=== PATIENT | female | born 1935 | race Caucasian/White ===

== ENCOUNTER 2021-06-20 12:46 | Inpatient (IN) | payer MEDICARE, BC ==
--- NOTE | 2021-06-20 13:38 | ED ---
SOB HPI - General Chief Complaint: Shortness of Breath Stated Complaint: sob Source: patient, EMS Mode of arrival: EMS Limitations: physical limitation - History of Present Illness Initial Comments: Patient is an 86-year-old female past medical history of colon cancer with colostomy, hypertension, thyroid disorder who presents emergency department with reported shortness of breath. Reports that she has had symptoms since the . Started off as cough and congestion but has persisted. States that she originally lost her sense of smell and taste however that has now resolved. She is admitting to shortness of breath and generalized fatigue. States she has had no appetite and cannot remember the last time she had solid food. She normally ambulates with a walker however states this has been difficult she couldn't get to the bathroom in the morning. She denies previous history of cardiac or pulmonary issues. Patient's nonsmoker. She admits to "heartburn" symptoms however denies chest pain. No lower extremity swelling. No history of DVT or PE. No Covid exposure. Is vaccinated against Covid in her second shot was in December. States that her was sick prior to her becoming sick. No abdominal pain. No changes in her bowel or bladder habits. No other alleviating, precipitating or modifying factors - Related Data Home Medications Medication Instructions Recorded Confirmed Multivitamins, Thera [Multivitamin 1 tab PO DAILY 06/20/21 06/20/21 (formulary)] Previous Rx's Medication Instructions Recorded Apixaban [Eliquis] 5 mg PO BID 30 Days #60 tab 06/24/21 Levothyroxine Sodium 150 mcg PO DAILY #30 tablet 06/25/21 Amiodarone [Cordarone] See Taper PO BID #120 tab 06/28/21 Amoxic-Pot Clav 875-125Mg 1 tab PO Q12HR 3 Days #6 tab 06/28/21 [Augmentin 875-125] Benzonatate [Tessalon Perles] 100 mg PO TID PRN #30 cap 06/28/21 Furosemide [Lasix] 40 mg PO DAILY #30 tab 06/28/21 Losartan [Cozaar] 50 mg PO DAILY #30 tab 06/28/21 Metoprolol Tartrate [Lopressor] 50 mg PO BID 30 Days #60 tab 06/28/21 Allergies Allergy/AdvReac Type Severity Reaction Status Date / Time No Known Allergies Allergy Verified 06/20/21 14:44 Review of Systems ROS Statement: Those systems with pertinent positive or pertinent negative responses have been documented in the HPI. ROS Other: All systems not noted in ROS Statement are negative. Past Medical History Past Medical History: Hypertension, Thyroid Disorder Additional Past Medical History / Comment(s): colon/rectal cancer History of Any Multi-Drug Resistant Organisms: None Reported Past Surgical History: Bowel Resection, Orthopedic Surgery Additional Past Surgical History / Comment(s): Bowel resection with colostomy Past Psychological History: Anxiety Smoking Status: Never smoker Past Alcohol Use History: None Reported Past Drug Use History: None Reported General Exam Limitations: physical limitation General appearance: alert, in no apparent distress Head exam: Present: atraumatic, normocephalic, normal inspection Eye exam: Present: normal appearance, PERRL, EOMI. Absent: scleral icterus, conjunctival injection, periorbital swelling ENT exam: Present: normal exam, mucous membranes moist Neck exam: Present: normal inspection. Absent: tenderness, meningismus, lymphadenopathy Respiratory exam: Present: normal lung sounds bilaterally. Absent: respiratory distress, wheezes, rales, rhonchi, stridor Cardiovascular Exam: Present: regular rate, normal rhythm, normal heart sounds. Absent: systolic murmur, diastolic murmur, rubs, gallop, clicks GI/Abdominal exam: Present: soft, normal bowel sounds. Absent: distended, tend erness, guarding, rebound, rigid Extremities exam: Present: normal inspection, full ROM, normal capillary refill. Absent: tenderness, pedal edema, joint swelling, calf tenderness Back exam: Present: normal inspection Neurological exam: Present: alert, oriented X3, CN II-XII intact Psychiatric exam: Present: normal affect, normal mood Skin exam: Present: warm, dry, intact, normal color. Absent: rash Course Vital Signs 06/20/21 06/20/21 06/20/21 12:52 14:44 17:00 Temperature 98.7 F 99.5 F Pulse Rate 84 82 84 Pulse Rate [ Pulse Oximetery ] Respiratory 20 18 18 Rate Blood Pressure 193/98 156/76 156/76 Blood Pressure [Right Arm] O2 Sat by Pulse 98 98 94 L Oximetry 06/20/21 06/20/21 06/20/21 18:51 20:15 21:00 Temperature 98.4 F Pulse Rate 80 82 Pulse Rate [ 86 Pulse Oximetery ] Respiratory 18 19 20 Rate Blood Pressure 154/84 167/74 Blood Pressure 185/102 [Right Arm] O2 Sat by Pulse 98 98 97 Oximetry - Reevaluation(s) Reevaluation #1: 06/20/21 17:[address] - CT chest still unread. Will look into reason for delay Reevaluation #2: 06/20/21 18:02 CT still not read - inquiring again about delay in read Medical Decision Making - Medical Decision Making Upon arrival the patient was placed into room 4. A thorough history and physical exam was performed. Patient placed on continuous pulse ox and cardiac monitoring. 12-lead EKG was performed. IV is established and laboratory studies are conducted. White count elevated at 13.2. D-dimer is 4.82. Troponin 0.017. TSH low at .132 and free T4 of 3.1. Urinalysis does demonstrate moderate leukocyte esterase with occasional bacteria. Covid is negative. Chest x-ray demonstrates a large hiatal hernia with a left basilar infiltrate. Because of the patient's elevated d-dimer did perform a CT of the chest which demonstrates no pulmonary embolus. Distal esophageal wall thickening. Hernia with partially thoracic stomach. Chronic lung disease. I did give the patient 1 g of Rocephin and 500 mg of azithromycin. Due to patient's reported abdominal/chest discomfort I did give her a GI cocktail for which she does have an episode of vomiting. The patient has been given a dose of Protonix. She is requesting something for cough and I did give her Tessalon Perles. I did recommend admission to the hospital for IV antibiotics for her left basilar infiltrate. I would like to trend her troponins that she does have a left bundle branch block noted on EKG. Unknown if this is new. I will consult cardiology for her chest discomfort with left bundle branch block. Patient will be admitted to Dr. Galvez who agreed to admit the patient. I will hold her levothyroxine. She is currently awaiting a bed on the floor - Lab Data Result diagrams: 06/26/21 05:14 06/28/21 04:39 Lab Results 06/20/21 06/20/21 06/20/21 Range/Units 13:34 13:44 13:45 WBC 13.2 H (3.8-10.6) k/uL RBC 5.28 (3.80-5.40) m/uL Hgb 15.4 (11.4-16.0) gm/dL Hct 45.6 (34.0-46.0) % MCV 86.4 (80.0-100.0) fL MCH 29.1 (25.0-35.0) pg MCHC 33.7 (31.0-37.0) g/dL RDW 12.5 (11.5-15.5) % Plt Count 378 (150-450) k/uL Plt Count Comment MPV 7.1 Immature Gran % (Auto) % Absolute Nucleated RBC (0.00-0.00) X 10*3/uL Neutrophils % 83 % Lymphocytes % 8 % Monocytes % 6 % Eosinophils % 2 % Basophils % 0 % Immature Gran # (0.00-0.04) X 10*3/uL Neutrophils # 11.0 H (1.3-7.7) k/uL Lymphocytes # 1.1 (1.0-4.8) k/uL Monocytes # 0.8 (0-1.0) k/uL Eosinophils # 0.2 (0-0.7) k/uL Basophils # 0.1 (0-0.2) k/uL NRBC/100 WBC Diff (0.0-0.0) /100 WBCS RBC Morphology PT (9.0-12.0) sec INR (<1.2) APTT (22.0-30.0) sec D-Dimer (<0.60) mg/L FEU Sodium 134 L (137-145) mmol/L Potassium 3.6 (3.5-5.1) mmol/L Chloride 94 L (98-107) mmol/L Carbon Dioxide 32 H (22-30) mmol/L Anion Gap 8 mmol/L BUN 15 (7-17) mg/dL Creatinine 0.70 (0.52-1.04) mg/dL Est GFR (CKD-EPI)AfAm >90 (>60 ml/min/1.73 sqM) Est GFR (CKD-EPI)NonAf 80 (>60 ml/min/1.73 sqM) BUN/Creatinine Ratio (12.00-20.00) Ratio Glucose 132 H (74-99) mg/dL Plasma Lactic Acid Sundar (0.7-2.0) mmol/L Calcium 10.4 H (8.4-10.2) mg/dL Magnesium 1.9 (1.6-2.3) mg/dL Total Bilirubin 0.7 (0.2-1.3) mg/dL AST 38 H (14-36) U/L ALT 38 H (4-34) U/L Alkaline Phosphatase 94 (38-126) U/L Creatine Kinase 25 L (30-135) U/L Troponin I (0.000-0.034) ng/mL NT-Pro-B Natriuret Pep pg/mL Total Protein 7.0 (6.3-8.2) g/dL Albumin 3.5 (3.5-5.0) g/dL TSH 0.132 L (0.465-4.680) mIU/L Free T4 3.17 H (0.78-2.19) ng/dL Urine Color Urine Appearance (Clear) Urine pH (5.0-8.0) Ur Specific [place] (1.001-1.035) Urine Protein (Negative) Urine Glucose (UA) (Negative) Urine Ketones (Negative) Urine Blood (Negative) Urine Nitrite (Negative) Urine Bilirubin (Negative) Urine Urobilinogen (<2.0) mg/dL Ur Leukocyte Esterase (Negative) Urine RBC (0-5) /hpf Urine WBC (0-5) /hpf Ur Squamous Epith Cells (0-4) /hpf Amorphous Sediment (None) /hpf Urine Bacteria (None) /hpf Coronavirus (PCR) Not Detected (Not Detectd) 06/20/21 06/20/21 06/20/21 Range/Units 13:45 13:45 13:45 WBC (3.8-10.6) k/uL RBC (3.80-5.40) m/uL Hgb (11.4-16.0) gm/dL Hct (34.0-46.0) % MCV (80.0-100.0) fL MCH (25.0-35.0) pg MCHC (31.0-37.0) g/dL RDW (11.5-15.5) % Plt Count (150-450) k/uL Plt Count Comment MPV Immature Gran % (Auto) % Absolute Nucleated RBC (0.00-0.00) X 10*3/uL Neutrophils % % Lymphocytes % % Monocytes % % Eosinophils % % Basophils % % Immature Gran # (0.00-0.04) X 10*3/uL Neutrophils # (1.3-7.7) k/uL Lymphocytes # (1.0-4.8) k/uL Monocytes # (0-1.0) k/uL Eosinophils # (0-0.7) k/uL Basophils # (0-0.2) k/uL NRBC/100 WBC Diff (0.0-0.0) /100 WBCS RBC Morphology PT (9.0-12.0) sec INR (<1.2) APTT (22.0-30.0) sec D-Dimer (<0.60) mg/L FEU Sodium (137-145) mmol/L Potassium (3.5-5.1) mmol/L Chloride (98-107) mmol/L Carbon Dioxide (22-30) mmol/L Anion Gap mmol/L BUN (7-17) mg/dL Creatinine (0.52-1.04) mg/dL Est GFR (CKD-EPI)AfAm (>60 ml/min/1.73 sqM) Est GFR (CKD-EPI)NonAf (>60 ml/min/1.73 sqM) BUN/Creatinine Ratio (12.00-20.00) Ratio Glucose (74-99) mg/dL Plasma Lactic Acid Sundar 1.6 (0.7-2.0) mmol/L Calcium (8.4-10.2) mg/dL Magnesium (1.6-2.3) mg/dL Total Bilirubin (0.2-1.3) mg/dL AST (14-36) U/L ALT (4-34) U/L Alkaline Phosphatase (38-126) U/L Creatine Kinase (30-135) U/L Troponin I 0.017 (0.000-0.034) ng/mL NT-Pro-B Natriuret Pep 630 pg/mL Total Protein (6.3-8.2) g/dL Albumin (3.5-5.0) g/dL TSH (0.465-4.680) mIU/L Free T4 (0.78-2.19) ng/dL Urine Color Urine Appearance (Clear) Urine pH (5.0-8.0) Ur Specific [place] (1.001-1.035) Urine Protein (Negative) Urine Glucose (UA) (Negative) Urine Ketones (Negative) Urine Blood (Negative) Urine Nitrite (Negative) Urine Bilirubin (Negative) Urine Urobilinogen (<2.0) mg/dL Ur Leukocyte Esterase (Negative) Urine RBC (0-5) /hpf Urine WBC (0-5) /hpf Ur Squamous Epith Cells (0-4) /hpf Amorphous Sediment (None) /hpf Urine Bacteria (None) /hpf Coronavirus (PCR) (Not Detectd) 06/20/21 06/20/21 06/20/21 Range/Units 15:00 15:00 22:00 WBC (3.8-10.6) k/uL RBC (3.80-5.40) m/uL Hgb (11.4-16.0) gm/dL Hct (34.0-46.0) % MCV (80.0-100.0) fL MCH (25.0-35.0) pg MCHC (31.0-37.0) g/dL RDW (11.5-15.5) % Plt Count (150-450) k/uL Plt Count Comment MPV Immature Gran % (Auto) % Absolute Nucleated RBC (0.00-0.00) X 10*3/uL Neutrophils % % Lymphocytes % % Monocytes % % Eosinophils % % Basophils % % Immature Gran # (0.00-0.04) X 10*3/uL Neutrophils # (1.3-7.7) k/uL Lymphocytes # (1.0-4.8) k/uL Monocytes # (0-1.0) k/uL Eosinophils # (0-0.7) k/uL Basophils # (0-0.2) k/uL NRBC/100 WBC Diff (0.0-0.0) /100 WBCS RBC Morphology PT 10.8 (9.0-12.0) sec INR 1.0 (<1.2) APTT 23.7 (22.0-30.0) sec D-Dimer 4.82 H (<0.60) mg/L FEU Sodium (137-145) mmol/L Potassium (3.5-5.1) mmol/L Chloride (98-107) mmol/L Carbon Dioxide (22-30) mmol/L Anion Gap mmol/L BUN (7-17) mg/dL Creatinine (0.52-1.04) mg/dL Est GFR (CKD-EPI)AfAm (>60 ml/min/1.73 sqM) Est GFR (CKD-EPI)NonAf (>60 ml/min/1.73 sqM) BUN/Creatinine Ratio (12.00-20.00) Ratio Glucose (74-99) mg/dL Plasma Lactic Acid Sundar (0.7-2.0) mmol/L Calcium (8.4-10.2) mg/dL Magnesium (1.6-2.3) mg/dL Total Bilirubin (0.2-1.3) mg/dL AST (14-36) U/L ALT (4-34) U/L Alkaline Phosphatase (38-126) U/L Creatine Kinase (30-135) U/L Troponin I 0.023 (0.000-0.034) ng/mL NT-Pro-B Natriuret Pep pg/mL Total Protein (6.3-8.2) g/dL Albumin (3.5-5.0) g/dL TSH (0.465-4.680) mIU/L Free T4 (0.78-2.19) ng/dL Urine Color Light Yellow Urine Appearance Cloudy H (Clear) Urine pH 7.5 (5.0-8.0) Ur Specific [place] 1.009 (1.001-1.035) Urine Protein Negative (Negative) Urine Glucose (UA) Negative (Negative) Urine Ketones Negative (Negative) Urine Blood Negative (Negative) Urine Nitrite Negative (Negative) Urine Bilirubin Negative (Negative) Urine Urobilinogen <2.0 (<2.0) mg/dL Ur Leukocyte Esterase Moderate H (Negative) Urine RBC 1 (0-5) /hpf Urine WBC 9 H (0-5) /hpf Ur Squamous Epith Cells 1 (0-4) /hpf Amorphous Sediment Few H (None) /hpf Urine Bacteria Occasional H (None) /hpf Coronavirus (PCR) (Not Detectd) 06/21/21 06/21/21 06/21/21 Range/Units 00:48 05:52 05:52 WBC 8.84 (3.8-10.6) k/uL RBC 4.84 (3.80-5.40) m/uL Hgb 13.4 (11.4-16.0) gm/dL Hct 41.4 (34.0-46.0) % MCV 85.5 (80.0-100.0) fL MCH 27.7 (25.0-35.0) pg MCHC 32.4 (31.0-37.0) g/dL RDW 12.6 (11.5-15.5) % Plt Count 399 (150-450) k/uL Plt Count Comment Adequate MPV 9.0 L Immature Gran % (Auto) 0.5 % Absolute Nucleated RBC 0 (0.00-0.00) X 10*3/uL Neutrophils % 66.1 % Lymphocytes % 13.3 % Monocytes % 18.1 % Eosinophils % 1.5 % Basophils % 0.5 % Immature Gran # 0.04 (0.00-0.04) X 10*3/uL Neutrophils # 5.85 (1.3-7.7) k/uL Lymphocytes # 1.18 (1.0-4.8) k/uL Monocytes # 1.60 H (0-1.0) k/uL Eosinophils # 0.13 (0-0.7) k/uL Basophils # 0.04 (0-0.2) k/uL NRBC/100 WBC Diff 0 (0.0-0.0) /100 WBCS RBC Morphology NORMAL PT (9.0-12.0) sec INR (<1.2) APTT (22.0-30.0) sec D-Dimer (<0.60) mg/L FEU Sodium 136 (137-145) mmol/L Potassium 4.2 (3.5-5.1) mmol/L Chloride 98 (98-107) mmol/L Carbon Dioxide 32.1 H (22-30) mmol/L Anion Gap 5.90 mmol/L BUN 12.0 (7-17) mg/dL Creatinine 0.8 (0.52-1.04) mg/dL Est GFR (CKD-EPI)AfAm 78.5 (>60 ml/min/1.73 sqM) Est GFR (CKD-EPI)NonAf 67.7 (>60 ml/min/1.73 sqM) BUN/Creatinine Ratio 15.00 (12.00-20.00) Ratio Glucose 110 (74-99) mg/dL Plasma Lactic Acid Sundar (0.7-2.0) mmol/L Calcium 9.0 (8.4-10.2) mg/dL Magnesium (1.6-2.3) mg/dL Total Bilirubin (0.2-1.3) mg/dL AST (14-36) U/L ALT (4-34) U/L Alkaline Phosphatase (38-126) U/L Creatine Kinase (30-135) U/L Troponin I 0.020 (0.000-0.034) ng/mL NT-Pro-B Natriuret Pep pg/mL Total Protein (6.3-8.2) g/dL Albumin (3.5-5.0) g/dL TSH (0.465-4.680) mIU/L Free T4 (0.78-2.19) ng/dL Urine Color Urine Appearance (Clear) Urine pH (5.0-8.0) Ur Specific [place] (1.001-1.035) Urine Protein (Negative) Urine Glucose (UA) (Negative) Urine Ketones (Negative) Urine Blood (Negative) Urine Nitrite (Negative) Urine Bilirubin (Negative) Urine Urobilinogen (<2.0) mg/dL Ur Leukocyte Esterase (Negative) Urine RBC (0-5) /hpf Urine WBC (0-5) /hpf Ur Squamous Epith Cells (0-4) /hpf Amorphous Sediment (None) /hpf Urine Bacteria (None) /hpf Coronavirus (PCR) (Not Detectd) 06/21/21 Range/Units 20:01 WBC (3.8-10.6) k/uL RBC (3.80-5.40) m/uL Hgb (11.4-16.0) gm/dL Hct (34.0-46.0) % MCV (80.0-100.0) fL MCH (25.0-35.0) pg MCHC (31.0-37.0) g/dL RDW (11.5-15.5) % Plt Count (150-450) k/uL Plt Count Comment MPV Immature Gran % (Auto) % Absolute Nucleated RBC (0.00-0.00) X 10*3/uL Neutrophils % % Lymphocytes % % Monocytes % % Eosinophils % % Basophils % % Immature Gran # (0.00-0.04) X 10*3/uL Neutrophils # (1.3-7.7) k/uL Lymphocytes # (1.0-4.8) k/uL Monocytes # (0-1.0) k/uL Eosinophils # (0-0.7) k/uL Basophils # (0-0.2) k/uL NRBC/100 WBC Diff (0.0-0.0) /100 WBCS RBC Morphology PT (9.0-12.0) sec INR (<1.2) APTT (22.0-30.0) sec D-Dimer (<0.60) mg/L FEU Sodium (137-145) mmol/L Potassium (3.5-5.1) mmol/L Chloride (98-107) mmol/L Carbon Dioxide (22-30) mmol/L Anion Gap mmol/L BUN (7-17) mg/dL Creatinine (0.52-1.04) mg/dL Est GFR (CKD-EPI)AfAm (>60 ml/min/1.73 sqM) Est GFR (CKD-EPI)NonAf (>60 ml/min/1.73 sqM) BUN/Creatinine Ratio (12.00-20.00) Ratio Glucose (74-99) mg/dL Plasma Lactic Acid Sundar (0.7-2.0) mmol/L Calcium (8.4-10.2) mg/dL Magnesium (1.6-2.3) mg/dL Total Bilirubin (0.2-1.3) mg/dL AST (14-36) U/L ALT (4-34) U/L Alkaline Phosphatase (38-126) U/L Creatine Kinase (30-135) U/L Troponin I (0.000-0.034) ng/mL NT-Pro-B Natriuret Pep pg/mL Total Protein (6.3-8.2) g/dL Albumin (3.5-5.0) g/dL TSH (0.465-4.680) mIU/L Free T4 (0.78-2.19) ng/dL Urine Color Urine Appearance (Clear) Urine pH (5.0-8.0) Ur Specific [place] (1.001-1.035) Urine Protein (Negative) Urine Glucose (UA) (Negative) Urine Ketones (Negative) Urine Blood (Negative) Urine Nitrite (Negative) Urine Bilirubin (Negative) Urine Urobilinogen (<2.0) mg/dL Ur Leukocyte Esterase (Negative) Urine RBC (0-5) /hpf Urine WBC (0-5) /hpf Ur Squamous Epith Cells (0-4) /hpf Amorphous Sediment (None) /hpf Urine Bacteria (None) /hpf Coronavirus (PCR) Not Detected (Not Detectd) - EKG Data EKG Comments: EKG demonstrates a normal sinus rhythm with a ventricular rate of 82. MO interval 200. QRS 158. QTC of 490. There is a left bundle branch block. Negative sgarbossa criteria. No old for comparison. Disposition Clinical Impression: Cough, CAP (community acquired pneumonia), Hyperthyroidism Disposition: ADMITTED IP TO THIS HOSP Condition: Stable Is patient prescribed a controlled substance at d/c from ED?: No Decision to Admit Reason: Admit from EC Decision Date: 06/20/21 Decision Time: 18:57
[2021-06-20 13:50] LABS: Basophils # (A) 0.1 k/uL (0-0.2); Basophils % (A) 0 %; Eosinophils # (A) 0.2 k/uL (0-0.7); Eosinophils % (A) 2 %; HCT 45.6 % (34.0-46.0); HGB 15.4 gm/dL (11.4-16.0); Lymphocytes # (A) 1.1 k/uL (1.0-4.8); Lymphocytes % (A) 8 %; MCH 29.1 pg (25.0-35.0); MCHC 33.7 g/dL (31.0-37.0); MCV 86.4 fL (80.0-100.0); Mean Platelet Volume 7.1; Monocytes # (A) 0.8 k/uL (0-1.0); Monocytes % (A) 6 %; Neutrophils % (A) 83 %; Platelet Count 378 k/uL (150-450); RBC 5.28 m/uL (3.80-5.40); RDW 12.5 % (11.5-15.5); WBC 13.2 k/uL (3.8-10.6)
[2021-06-20 14:00] LABS: ALT 38 U/L (4-34); AST 38 U/L (14-36); African American GFR (CKD) >90 (>60 ml/min/1.73 sqM); Albumin 3.5 g/dL (3.5-5.0); Alkaline Phosphatase 94 U/L (38-126); Anion Gap 8 mmol/L; Blood Urea Nitrogen 15 mg/dL (7-17); Calcium 10.4 mg/dL (8.4-10.2); Carbon Dioxide 32 mmol/L (22-30); Chloride 94 mmol/L (98-107); Creatine Kinase 25 U/L (30-135); Glucose 132 mg/dL (74-99); Magnesium 1.9 mg/dL (1.6-2.3); Non-African American GFR(CKD) 80 (>60 ml/min/1.73 sqM); Potassium 3.6 mmol/L (3.5-5.1); Sodium 134 mmol/L (137-145); Total Bilirubin 0.7 mg/dL (0.2-1.3)
--- NOTE | 2021-06-20 14:07 | XR ---
EXAMINATION TYPE: XR chest 2V DATE OF EXAM: 06/20/2021 COMPARISON: NONE TECHNIQUE: PA and lateral views submitted. HISTORY: Shortness of breath FINDINGS: The lungs are clear and there is no pneumothorax, pleural effusion, or focal pneumonia. Diffuse int erstitial pattern with left basilar infiltrate and hiatal hernia. No sizable pleural effusion or pneu mothorax. Arthropathy of the shoulders. Degenerative change of the spine. IMPRESSION: 1. Large hiatal hernia with left basilar infiltrate. Correlate for interstitial chronic lung disease such as pulmonary fibrosis. Superimposed or interstitial pneumonitis or pneumonia in the differential diagnosis.
[2021-06-20 15:08] LABS: Amorphous Sediment,Urine Few /hpf; Appearance,Urine Cloudy (Clear); Bacteria,Urine Occasional /hpf; Bilirubin,Urine Negative (Negative); Blood,Urine Negative (Negative); Color,Urine Light Yellow; Glucose,Urine (UA) Negative (Negative); Ketones,Urine Negative (Negative); Leukocyte Esterase,Urine Moderate (Negative); Nitrite,Urine Negative (Negative); PH, Urine 7.5 (5.0-8.0); Protein,Urine Negative (Negative); RBC,Urine 1 /hpf (0-5); Specific Gravity,Urine 1.009 (1.001-1.035); Squamous Epithelial Cell,Urine 1 /hpf (0-4); Urobilinogen,Urine <2.0 mg/dL (<2.0); WBC,Urine 9 /hpf (0-5)
[2021-06-20 15:09] LABS: T4, Free (Free Thyroxine) 3.17 ng/dL (0.78-2.19)
[2021-06-20 15:21] LABS: Partial Thromboplastin Time 23.7 sec (22.0-30.0); Prothrombin Time 10.8 sec (9.0-12.0)
[2021-06-20] MEDS ORDERED: AZITHROMYCIN 500 MG in SODIUM CHLORIDE 0.9% 250 ML IVPB STA (15:23)
[2021-06-20] MEDS ORDERED: cefTRIAXone IN SWFI 1,000 MG/10 ML SYRINGE IVP STA (15:23)
[2021-06-20] MEDS ORDERED: MAG HYDROX/AL HYDROX/SIMETH 30 ML, HYOSCYAMINE ELIXIR 10 ML, LIDOCAINE VISCOUS 2% 10 ML PO STA ×3 (16:22)
[2021-06-20] MEDS ORDERED: BENZONATATE 100 MG CAP PO STA (18:20)
--- NOTE | 2021-06-20 18:27 | CT ---
EXAMINATION TYPE: CT chest angio for PE DATE OF EXAM: 06/20/2021 COMPARISON: None HISTORY: cough, SOB, elevated d-dimer CT DLP: 349 mGycm Automated exposure control for dose reduction was used. CONTRAST: CT Chest for pulmonary embolism performed with with IV Contrast, patient injected with 76cc mL of Iso shweta 370. FINDINGS: LUNGS: Groundglass/reticular opacities and bronchiectatic changes of the lungs. No consolidation or e ffusion or pneumothorax. Central airways are patent. MEDIASTINUM: There is satisfactory enhancement of the pulmonary artery and its branches, there is no CT evidence for pulmonary embolism. There are no greater than 1 cm hilar or mediastinal lymph nodes. No pericardial effusion is seen. The distal esophageal wall thickening. Left Bochdalek hernia with partially intrathoracic stomach. OTHER: Hemangiomas of T4 and T8 vertebral bodies. A hypodensity in the right lobe of liver likely re presents a cyst. IMPRESSION: 1. No pulmonary embolus. 2. The distal esophageal wall thickening. Correlate with direct visualization. 3. Left Bochdalek hernia with partially intrathoracic stomach. 4. Chronic lung disease.
[2021-06-20] MEDS ORDERED: PANTOPRAZOLE 40 MG/10 ML VIAL IVP STA (18:34)
[2021-06-20] MEDS ORDERED: IBUPROFEN 400 MG TAB PO PRN (18:57)
[2021-06-20] MEDS ORDERED: NALOXONE 0.4 MG/ML 1 ML VIAL IV PRN (18:57)
[2021-06-20] MEDS: SODIUM CHLORIDE 0.9% 1,000 ML IV SCH ×2 (20:10→20:29)
[2021-06-20] MEDS: METOPROLOL SUCCINATE (ER) 25 MG TAB.ER.24H PO SCH (21:17)
[2021-06-21] MEDS: IPRATROPIUM-ALBUTEROL 3 ML NEB INHALATION SCH ×4 (08:10→20:00)
[2021-06-21] MEDS: LOSARTAN 50 MG TAB PO SCH ×2 (08:37→08:39)
[2021-06-21] MEDS: MULTIVITAMINS, THERA 1 EACH TAB PO SCH (08:37)
[2021-06-21] MEDS ORDERED: PANTOPRAZOLE 40 MG/10 ML VIAL IV SCH (09:00)
--- NOTE | 2021-06-21 09:00 | ECHOF ---
Referral Reason:dyspnea MEASUREMENTS -------- HEIGHT: 160.0 cm WEIGHT: 95.3 kg BP: 163/81 RVIDd: 2.5 cm (< 3.3) IVSd: 1.4 cm (0.6 - 1.1) LVIDd: 3.1 cm (3.9 - 5.3) LVPWd: 1.5 cm (0.6 - 1.1) IVSs: 1.6 cm LVIDs: 2.7 cm LVPWs: 1.7 cm LA Diam: 3.0 cm (2.7 - 3.8) Ao Diam: 3.1 cm (2.0 - 3.7) AV Cusp: 1.9 cm (1.5 - 2.6) MV EXCURSION: 16.920 mm (> 18.000) MV EF SLOPE: 37 mm/s (70 - 150) EPSS: 0.4 cm MV E Eliud: 1.12 m/s MV DecT: 238 ms MV A Eliud: 1.40 m/s MV E/A Ratio: 0.80 FINDINGS -------- Sinus rhythm. This was a technically adequate study. The left ventricular size is normal. There is moderate concentric left ventricular hypertrophy. O verall left ventricular systolic function is normal with, an EF between 55 - 60 %. The right ventricle is normal in size. The left atrium is normal in size. The right atrial size is normal. Interatrial and interventricular septum intact. The aortic valve is trileaflet, and appears structurally normal. No aortic stenosis or regurgitation. Mild mitral annular calcification present. There is trace mitral regurgitation. The tricuspid valve appears structurally normal. Unable to estimate RVSP due to inadequate TR jet s pectral doppler profile. There is no pulmonic regurgitation present. The aortic root size is normal. Normal inferior vena cava with normal inspiratory collapse consistent with estimated right atrial pre ssure of 5 mmHg. There is no pericardial effusion. CONCLUSIONS -------- 1. There is moderate concentric left ventricular hypertrophy. 2. Overall left ventricular systolic function is normal with, an EF between 55 - 60 %. 3. The left atrium is normal in size. 4. The aortic valve is trileaflet, and appears structurally normal. No aortic stenosis or regurgitati on. 5. There is trace mitral regurgitation. 6. There is no pericardial effusion. DAY CARE SUPERVISOR: Mony Burgess RDCS
[2021-06-21 09:08] LABS: HCT 41.4 % (37.2-46.3); HGB 13.4 g/dL (12.0-15.0); MCH 27.7 pg (27.0-32.0); MCHC 32.4 g/dL (32.0-37.0); MCV 85.5 fL (80.0-97.0); Platelet Count 399 X 10*3/uL (140-440); RBC 4.84 X 10*6/uL (4.10-5.20); RDW 12.6 % (11.5-14.5); WBC 8.84 X 10*3/uL (4.50-10.00)
--- NOTE | 2021-06-21 09:28 | CONS ---
CONSULTATION Mrs. Desai is an 86-year-old female with a history of hypertension who presented to the emergency room with symptoms of progressive dyspnea and cough which is productive of clear sputum. She has no fever. She had some heartburn, but no clear chest pressure or tightness. She has a prior history of colostomy done over 20 years ago. She denies any dizziness or palpitation. No peripheral edema. No PND. No orthopnea. She was diagnosed with possible pneumonia in the emergency room. She is average in her exercise tolerance, has mild dyspnea on exertion, but no history of obstructive coronary artery disease. She denies any PND or orthopnea. Her coronary risk factors are remarkable for hypertension. She is nondiabetic, nonsmoker. MEDICATIONS: Her medications include Toprol XL 25 mg daily, levothyroxine and a multivitamin. REVIEW OF SYSTEMS: RESPIRATORY SYSTEM: She has no documented history of asthma or emphysema or bronchitis. She has dyspnea on exertion and the cough recently, but no fever. She has been vaccinated for COVID-19. GI SYSTEM: No recent GI bleeding. No peptic ulcer disease. SYSTEM: No dysuria or hematuria. NERVOUS SYSTEM: No stroke or seizure. PHYSICAL EXAMINATION: She is an 86-year-old female, alert, oriented, in no apparent distress. Blood pressure running in the 150s to 190s with a heart rate in the 70s and 80s. HEAD: Normocephalic. EYES: Sclerae anicteric. NECK: Good carotid upstroke. No bruit. No jugular venous distention. LUNGS: Clear to auscultation. HEART: Regular rate and rhythm. S1, S2. No S3. Systolic murmur 3/6 mid peaking, heard at the base. No diastolic murmur. No rub. ABDOMEN: Soft. Colostomy noted. No organomegaly. EXTREMITIES: No edema. Intact distal pulses. LAB DATA: Lab data revealed troponin 0.017, 0.023 and 0.020. Her NT-proBNP is 620. TSH 0.132, free T4 is 3.17. BUN and creatinine are 15 and 0.7. D-dimer 4.82. White blood cells of 13.2, hemoglobin of 15.4. EKG revealed a sinus mechanism with left bundle branch block and left axis deviation. Chest x-ray revealed a large hiatal hernia with left basal infiltrate. She had a CT angiogram of the chest that revealed no evidence of pulmonary embolism and revealed a Bochdalek hernia with an intrathoracic stomach. IMPRESSION: 1. Cough and dyspnea with possible pneumonia. 2. Heartburn related to her hiatal hernia. 3. History of hypertension. 4. Aortic valve murmur. RECOMMENDATIONS: From the cardiac standpoint, there is no evidence to suggest cardiac abnormalities. Her blood pressure is elevated. I will add to her regimen losartan to optimize her blood pressure control. I will obtain an echocardiogram to evaluate her heart murmur. No further cardiac workup is needed at this time. Thank you for this consult. Will follow with you. MMODL / IJN: [id number] /
[2021-06-21 09:50] LABS: Basophils # (A) 0.04 X 10*3/uL (0.00-0.10); Basophils % (A) 0.5 %; Eosinophils # (A) 0.13 X 10*3/uL (0.04-0.35); Eosinophils % (A) 1.5 %; Lymphocytes # (A) 1.18 X 10*3/uL (0.90-5.00); Lymphocytes % (A) 13.3 %; Monocytes % (A) 18.1 %; Neutrophils # (A) 5.85 X 10*3/uL (1.80-7.70); Neutrophils % (A) 66.1 %
[2021-06-21 17:08] LABS: African American GFR (CKD) 78.5 (60.0-200.0); Anion Gap 5.9 mmol/L (4.00-12.00); Carbon Dioxide 32.1 mmol/L (21.6-31.8); Non-African American GFR(CKD) 67.7 (60.0-200.0); Potassium 4.2 mmol/L (3.5-5.5)
[2021-06-21] MEDS: SODIUM CHLORIDE 0.9% 1,000 ML IV SCH (18:02)
[2021-06-21] MEDS: METOPROLOL SUCCINATE (ER) 25 MG TAB.ER.24H PO SCH (20:45)
[2021-06-22] MEDS: guaiFENesin-DM 600/30MG 1 EACH TAB.ER.12H PO PRN (01:59)
[2021-06-22] MEDS: LOSARTAN 50 MG TAB PO SCH (08:16)
[2021-06-22] MEDS: MULTIVITAMINS, THERA 1 EACH TAB PO SCH (08:16)
[2021-06-22] MEDS: SODIUM CHLORIDE 0.9% 1,000 ML IV SCH ×2 (08:17→21:07)
[2021-06-22] MEDS: IPRATROPIUM-ALBUTEROL 3 ML NEB INHALATION SCH ×4 (08:23→20:25)
[2021-06-22] MEDS ORDERED: PANTOPRAZOLE 40 MG TABLET PO SCH (09:00)
[2021-06-22] MEDS: AZITHROMYCIN 500 MG in SODIUM CHLORIDE 0.9% 250 ML IVPB SCH (18:11)
--- NOTE | 2021-06-22 18:19 | PN ---
PROGRESS NOTE I am covering for Dr. Clinton. DATE OF SERVICE: 06/22/2021 This 86-year-old woman with a past medical history of multiple medical problems, including hypertension, hypothyroidism, history of colorectal cancer, was admitted with a chronic cough and possible pneumonia has been noted. D-dimer is elevated. The patient was vaccinated against COVID-19, COVID-19 is a possibility. The initial serologies are negative. The patient also had low TSH and elevated free T4, suggestive of hyperthyroidism. Patient is currently on Synthroid of 175 at home dose, which has been held at this time. There is no history of any fever, rigor or chills. Past medical history reviewed. REVIEW OF SYSTEMS: CARDIOVASCULAR SYSTEM: No angina. RESPIRATION: As mentioned earlier. GI: As mentioned earlier. : No dysuria. NERVOUS SYSTEM: No numbness, weakness. CURRENT MEDICATIONS: Reviewed. They include Tylenol, DuoNeb, Rocephin, Motrin, Cozaar, multivitamins, Narcan, Protonix. Doses are reviewed. PHYSICAL EXAMINATION: Patient alert and oriented x3. Pulse 77, blood pressure 163/81, respiration 17, temperature 98.2, pulse ox 97% on 3 L. HEENT: Conjunctivae normal. NECK: No jugular venous distention. CARDIOVASCULAR: S1, S2 muffled. RESPIRATION: Breath sounds diminished at the bases. A few scattered rhonchi and basal crackles heard. ABDOMEN: Soft, nontender. No mass palpable. LEGS: No edema. No swelling. NERVOUS SYSTEM: No focal deficit. LABS: WBC 8.84. Serum procalcitonin is not available. ASSESSMENT: 1. Acute bilateral pneumonia, interstitial pneumonia, possible viral pneumonia, possibly COVID-19 pneumonia. 2. Elevated D-dimer without any evidence of acute pulmonary embolism. 3. Increased white count. 4. Hyponatremia. 5. Elevated AST, ALT, mild hepatitis. 6. Iatrogenic hyperthyroidism, mild. 7. Hypertension. 8. History of hypothyroidism. 9. History of colorectal cancer. 10.History of bowel resection. 11.History of anxiety. 12.Obesity with body mass index of 37.2. 13.FULL CODE. RECOMMENDATIONS AND DISCUSSION: In this 86-year-old woman who presented with multiple complex medical issues, we will monitor the patient closely, continue the current medications, continue symptomatic treatment. Continue the antibiotics. I also recommend a course of bronchodilators. Otherwise, continue to monitor. COVID-19 testing was requested. The prognosis is guarded because of multiple complex medical issues. Further recommendations to follow. Repeat labs will be ordered. MMODL / IJN: [id number] /
[2021-06-22] MEDS: METOPROLOL SUCCINATE (ER) 25 MG TAB.ER.24H PO SCH (19:20)
[2021-06-22] MEDS: HEPARIN SODIUM,PORCINE/PF 5,000 UNIT/0.5 ML SYRINGE SQ SCH (19:21)
[2021-06-22 20:11] LABS: C Reactive Protein 4.3 mg/dL (<1.0)
[2021-06-22] MEDS: ALBUTEROL HFA INHALER INHALATION SCH (20:27)
[2021-06-22] MEDS: PANTOPRAZOLE 40 MG/10 ML VIAL IVP SCH (21:13)
[2021-06-23] MEDS: AZITHROMYCIN 500 MG in SODIUM CHLORIDE 0.9% 250 ML IVPB SCH (08:07)
[2021-06-23] MEDS: MULTIVITAMINS, THERA 1 EACH TAB PO SCH (08:08)
[2021-06-23] MEDS: HEPARIN SODIUM,PORCINE/PF 5,000 UNIT/0.5 ML SYRINGE SQ SCH ×2 (08:08→21:16)
[2021-06-23] MEDS: LOSARTAN 50 MG TAB PO SCH (08:08)
[2021-06-23] MEDS: PANTOPRAZOLE 40 MG/10 ML VIAL IVP SCH ×2 (08:08→21:17)
[2021-06-23] MEDS: IPRATROPIUM-ALBUTEROL 3 ML NEB INHALATION SCH ×4 (08:53→20:42)
[2021-06-23] MEDS: ALBUTEROL HFA INHALER INHALATION SCH ×4 (08:55→20:44)
[2021-06-23 09:00] LABS: Basophils # (A) 0.01 X 10*3/uL (0.00-0.10); Basophils % (A) 0.1 %; Eosinophils # (A) 0.19 X 10*3/uL (0.04-0.35); Eosinophils % (A) 1.6 %; HCT 40.4 % (37.2-46.3); HGB 12.9 g/dL (12.0-15.0); Lymphocytes % (A) 7.7 %; MCH 27.2 pg (27.0-32.0); MCHC 31.9 g/dL (32.0-37.0); MCV 85.1 fL (80.0-97.0); Monocytes # (A) 1.66 X 10*3/uL (0.20-1.00); Monocytes % (A) 14.1 %; Neutrophils # (A) 8.93 X 10*3/uL (1.80-7.70); Neutrophils % (A) 76.1 %; Platelet Count 417 X 10*3/uL (140-440); RBC 4.75 X 10*6/uL (4.10-5.20); RDW 12.3 % (11.5-14.5); WBC 11.74 X 10*3/uL (4.50-10.00)
[2021-06-23 09:21] LABS: Ferritin 85.6 ng/mL (10.0-291.0)
[2021-06-23] MEDS: SODIUM CHLORIDE 0.9% 1,000 ML IV SCH ×2 (09:54→22:26)
[2021-06-23 10:29] LABS: Anion Gap 7.3 mmol/L (4.00-12.00); BUN/Creat Ratio 8.33 Ratio (12.00-20.00); Calcium 8.8 mg/dL (8.7-10.3); Carbon Dioxide 27.7 mmol/L (21.6-31.8); Non-African American GFR(CKD) 83.7 (60.0-200.0); Potassium 3.8 mmol/L (3.5-5.5)
--- NOTE | 2021-06-23 11:12 | P.CNPUL ---
History of Present Illness Consult date: 06/23/21 Reason for consult: dyspnea, cough, hypoxemia Chief complaint: Shortness of breath and cough History of present illness: Patient is a 86-year-old female seen eval reexamined continued to have complaint of ongoing cough shortness of breath, patient is a nonsmoker symptoms started about 2 weeks ago, however denies any chest pain, she does have symptoms of ongoing heartburn, patient has been immunized again scored, her past medical history significant for hypothyroidism, hypertension hypertensive cardiovascular disease, and hypothyroidism, history of bowel resection and colostomy due to history of colon cancer status post colostomy, and influenza and covert testing has been negative her chest x-ray with left lower lobe infiltrate along with large hiatal hernia some component of chronic pulmonary fibrosis, she underwent computed tomography scan of his chest which was negative for pulmonary embolism distillation esophageal wall thickening is noted, with presence of ground glass and reticular opacities, currently patient is appropriately treated with bronchodilators IV antibiotics with azithromycin and Rocephin Review of Systems All systems: negative Past Medical History Past Medical History: Hypertension, Thyroid Disorder Additional Past Medical History / Comment(s): colon/rectal cancer History of Any Multi-Drug Resistant Organisms: None Reported Past Surgical History: Bowel Resection, Orthopedic Surgery Additional Past Surgical History / Comment(s): Bowel resection with colostomy Past Psychological History: Anxiety Smoking Status: Never smoker Past Alcohol Use History: None Reported Past Drug Use History: None Reported Medications and Allergies Home Medications Medication Instructions Recorded Confirmed Type Levothyroxine Sodium [Synthroid] 175 mcg PO DAILY 06/20/21 06/20/21 History Metoprolol Succinate (ER) [Toprol 25 mg PO HS 06/20/21 06/20/21 History Xl] Multivitamins, Thera [Multivitamin 1 tab PO DAILY 06/20/21 06/20/21 History (formulary)] Allergies Allergy/AdvReac Type Severity Reaction Status Date / Time No Known Allergies Allergy Verified 06/20/21 14:44 Physical Exam Vitals: Vital Signs Temp Pulse Pulse Resp BP Pulse Ox 06/23/21 08:55 84 06/23/21 07:00 98.2 F 84 18 194/91 94 L 06/23/21 02:30 82 20 06/23/21 01:43 97.6 F 84 20 183/82 90 L 06/22/21 19:21 82 20 06/22/21 19:00 98.1 F 82 20 189/94 92 L 06/22/21 16:07 82 06/22/21 15:59 97 06/22/21 15:54 77 06/22/21 15:00 98.6 F 77 18 186/78 97 06/22/21 12:10 80 06/22/21 12:00 80 Intake and Output 06/22/21 06/23/21 06/23/21 22:59 06:59 14:59 Intake Total 0 0 Output Total 600 Balance 0 -600 0 Intake: Oral 0 0 Output: Urine 600 Other: Voiding Method Toilet Toilet # Voids 2 1 0 - Constitutional General appearance: average body habitus, cooperative, disheveled, mild distress - EENT Eyes: PERRLA ENT: normal oropharynx Ears: bilateral: normal - Neck Neck: normal ROM Carotids: bilateral: upstroke normal - Respiratory Respiratory: bilateral: CTA - Cardiovascular Rhythm: regular Heart sounds: normal: S1, S2 - Gastrointestinal General gastrointestinal: distended, hyperactive bowel sounds, soft - Integumentary Integumentary: normal turgor - Neurologic Neurologic: CNII-XII intact - Musculoskeletal Musculoskeletal: gait normal, generalized weakness, strength equal bilaterally - Psychiatric Psychiatric: A&O x's 3 Results - Laboratory Findings CBC and BMP: 06/23/21 05:50 06/23/21 05:50 PT/INR, D-dimer PT 10.8 sec (9.0-12.0) 06/20/21 15:00 INR 1.0 (<1.2) 06/20/21 15:00 D-Dimer 4.82 mg/L FEU (<0.60) H 06/20/21 15:00 Abnormal lab findings: Abnormal Labs 06/20/21 06/20/21 06/20/21 13:34 13:45 15:00 WBC 13.2 H MCHC MPV Immature Gran # Neutrophils # 11.0 H Monocytes # ESR D-Dimer Sodium 134 L Chloride 94 L Carbon Dioxide 32 H BUN BUN/Creatinine Ratio Glucose 132 H Calcium 10.4 H AST 38 H ALT 38 H Creatine Kinase 25 L C-Reactive Protein TSH 0.132 L Free T4 3.17 H Urine Appearance Cloudy H Ur Leukocyte Esterase Moderate H Urine WBC 9 H Amorphous Sediment Few H Urine Bacteria Occasional H 06/20/21 06/21/21 06/21/21 15:00 05:52 05:52 WBC MCHC MPV 9.0 L Immature Gran # Neutrophils # Monocytes # 1.60 H ESR D-Dimer 4.82 H Sodium Chloride Carbon Dioxide 32.1 H BUN BUN/Creatinine Ratio Glucose Calcium AST ALT Creatine Kinase C-Reactive Protein TSH Free T4 Urine Appearance Ur Leukocyte Esterase Urine WBC Amorphous Sediment Urine Bacteria 06/22/21 06/22/21 06/23/21 19:28 19:28 05:50 WBC 11.74 H MCHC 31.9 L MPV 9.0 L Immature Gran # 0.05 H Neutrophils # 8.93 H Monocytes # 1.66 H ESR 31 H D-Dimer Sodium Chloride Carbon Dioxide BUN BUN/Creatinine Ratio Glucose Calcium AST ALT Creatine Kinase C-Reactive Protein 4.3 H TSH Free T4 Urine Appearance Ur Leukocyte Esterase Urine WBC Amorphous Sediment Urine Bacteria 06/23/21 05:50 WBC MCHC MPV Immature Gran # Neutrophils # Monocytes # ESR D-Dimer Sodium Chloride Carbon Dioxide BUN 5.0 L BUN/Creatinine Ratio 8.33 L Glucose 111 H Calcium AST ALT Creatine Kinase C-Reactive Protein TSH Free T4 Urine Appearance Ur Leukocyte Esterase Urine WBC Amorphous Sediment Urine Bacteria - Diagnostic Findings Chest x-ray: report reviewed, image reviewed CT scan - chest: report reviewed, image reviewed Assessment and Plan Assessment: Left lower lobe pneumonia community-acquired patient appropriately treated with Rocephin and Zithromax Ongoing continuous cough likely related to pneumonia as well as component of GERD continue treatment with Protonix Large hiatal hernia with evidence of distal esophageal thickening Elevated d-dimer likely due to inflammatory process Mild Hyponatremia Plan: Continue broad-spectrum antibiotic Continue Protonix Cough drops and cough suppressant like Tessalon Perles We'll follow clinical course: Time with Patient: Greater than 30
[2021-06-23] MEDS: METOPROLOL TARTRATE 25 MG TAB PO SCH ×2 (16:05→21:16)
--- NOTE | 2021-06-23 18:04 | PN ---
PROGRESS NOTE I am covering for Dr. Clinton. DATE OF SERVICE: 06/23/2021. This 86-year-old woman who was admitted with acute bilateral pneumonia, interstitial pneumonia, is being closely monitored. Patient also developed atrial fibrillation with a fast ventricular rate. Pulmonary is also following the patient. The patient is on empiric antibiotics. Patient also had an incessant cough, pertussis. Cultures have been requested at this time. Past medical history reviewed. REVIEW OF SYSTEMS: CARDIOVASCULAR SYSTEM: As mentioned earlier. RESPIRATION: As mentioned earlier. GI: As mentioned earlier. : No dysuria. NERVOUS SYSTEM: No numbness, weakness. CURRENT MEDICATIONS: Reviewed. They include Tylenol, Ventolin, DuoNeb, Zithromax, Tessalon, Tums, Rocephin, Mucinex, Motrin, Cozaar, multivitamins, Protonix. Doses and other medications are reviewed. PHYSICAL EXAMINATION: Patient is alert and oriented x3. Pulse 84, blood pressure 194/90, respiration 18, temperature 98.2, pulse ox 94% on 3 L. HEENT: Conjunctivae normal. NECK: No jugular venous distention. CARDIOVASCULAR: S1, S2 muffled. RESPIRATION: Breath sounds diminished at the bases. A few scattered rhonchi. ABDOMEN: Soft, nontender. LEGS: No edema. No swelling. NERVOUS SYSTEM: No focal deficit. LAB STUDIES: WBC 11.7. Sodium 135. ESR 31. C-reactive protein is 4.3. Influenza, Legionella and RSV are negative. ASSESSMENT: 1. Acute bilateral pneumonia, interstitial pneumonia, possible viral pneumonia, possibly COVID-19 pneumonia. 2. Elevated D-dimer without any evidence of acute pulmonary embolism. 3. Atrial fibrillation with fast ventricular rate. 4. Increased white count. 5. Hyponatremia. 6. Elevated AST, ALT, and possible acute hepatitis. 7. Iatrogenic hyperthyroidism, mild. 8. Hypertension. 9. History of hypothyroidism. 10.History of colorectal cancer. 11.History of bowel resection. 12.History of anxiety. 13.Obesity with body mass index of 37.2. 14.FULL CODE. RECOMMENDATIONS AND DISCUSSION: I recommend to continue current medications, continue with symptomatic treatment. Continue the antibiotics at this time. Otherwise, I would also recommend initiating beta blockers. Two-D echo with Doppler. Troponin. Cardiology consultation for the new- onset atrial fibrillation with fast ventricular rate. Continue telemetry. I would also recommend a culture and evaluation for the pertussis. Prognosis guarded because of multiple complex medical issues. Further recommendations to follow. MMODL / IJN: [id number] /
[2021-06-24] MEDS: IPRATROPIUM-ALBUTEROL 3 ML NEB INHALATION SCH ×4 (08:20→19:46)
[2021-06-24] MEDS: SODIUM CHLORIDE 0.9% 1,000 ML IV SCH (08:48)
--- NOTE | 2021-06-24 08:49 | P.HPIM ---
History of Present Illness H&P Date: 06/21/21 Chief Complaint: cough Wendy Desai is an 86 yo F with PMH of COPD who presented to the ED complaining of cough and shortness of breath over the past 2 weeks. She complains that her symptoms worsened to the point that she was unable to catch her breath so came to the hospital. She denies fever, chills, loss of sense of smell or taste. On presentation pt hypertensive and hypoxic, requiring 2 LPM O2 via NC. Labs showing elevated WBC, trop negative, hyponatremia and elevated T4. CXR and CTA chest with bilateral infiltrate. She is a nonsmoker. Initial EKG showing LBBB. Review of Systems All systems: negative Constitutional: Reports malaise, Denies chills, Denies fever Eyes: denies blurred vision, denies pain Ears, nose, mouth and throat: Denies headache, Denies sore throat Cardiovascular: Denies chest pain, Denies shortness of breath Respiratory: Reports cough, Reports cough with sputum, Reports dyspnea Gastrointestinal: Denies abdominal pain, Denies diarrhea, Denies nausea, Denies vomiting Genitourinary: Denies dysuria, Denies hematuria Musculoskeletal: Denies myalgias Integumentary: Denies pruritus, Denies rash Neurological: Denies numbness, Denies weakness Psychiatric: Denies anxiety, Denies depression Endocrine: Denies fatigue, Denies weight change Past Medical History Past Medical History: Hypertension, Thyroid Disorder Additional Past Medical History / Comment(s): colon/rectal cancer History of Any Multi-Drug Resistant Organisms: None Reported Past Surgical History: Bowel Resection, Orthopedic Surgery Additional Past Surgical History / Comment(s): Bowel resection with colostomy Past Psychological History: Anxiety Smoking Status: Never smoker Past Alcohol Use History: None Reported Past Drug Use History: None Reported Medications and Allergies Home Medications Medication Instructions Recorded Confirmed Type Levothyroxine Sodium [Synthroid] 175 mcg PO DAILY 06/20/21 06/20/21 History Metoprolol Succinate (ER) [Toprol 25 mg PO HS 06/20/21 06/20/21 History Xl] Multivitamins, Thera [Multivitamin 1 tab PO DAILY 06/20/21 06/20/21 History (formulary)] Allergies Allergy/AdvReac Type Severity Reaction Status Date / Time No Known Allergies Allergy Verified 06/20/21 14:44 Physical Exam Vitals: Vital Signs Temp Pulse Pulse Resp BP BP Pulse Ox 06/24/21 08:30 97 06/24/21 08:20 94 92 L 06/24/21 07:00 99.5 F 110 H 18 144/90 95 06/24/21 01:44 99.2 F 90 20 119/66 97 06/23/21 20:52 88 06/23/21 20:42 88 06/23/21 20:01 99.4 F 94 18 136/80 94 L 06/23/21 20:00 69 18 06/23/21 16:33 88 06/23/21 16:25 80 06/23/21 15:00 98.3 F 95 18 135/82 96 06/23/21 09:15 182/84 06/23/21 09:05 80 06/23/21 08:55 84 Intake and Output 06/23/21 06/24/21 06/24/21 22:59 06:59 14:59 Intake Total 120 480 Balance 120 480 Intake: Oral 120 480 Other: # Voids 1 General: well developed, well nourished, NAD HEENT: NC, AT, mmm Neck: supple, no thyromegaly, no JVD CV: RRR, no murmur Lungs: Normal effort, clear throughout Abd: soft, nontender, non distended Neuro: alert and oriented x3, no focal deficit Skin: warm and dry Results CBC & Chem 7: 06/23/21 05:50 06/23/21 05:50 Labs: Abnormal Lab Results - Last 24 Hours (Table) 06/23/21 06/23/21 Range/Units 05:50 05:50 WBC 11.74 H (4.50-10.00) X 10*3/uL MCHC 31.9 L (32.0-37.0) g/dL MPV 9.0 L (9.5-12.2) fL Immature Gran # 0.05 H (0.00-0.04) X 10*3/uL Neutrophils # 8.93 H (1.80-7.70) X 10*3/uL Monocytes # 1.66 H (0.20-1.00) X 10*3/uL BUN 5.0 L (9.0-27.0) mg/dL BUN/Creatinine Ratio 8.33 L (12.00-20.00) Ratio Glucose 111 H (70-110) mg/dL Assessment and Plan Plan: 1. Community acquired pneumonia. Start IV abx, IV fluids, duonebs, tessalon for cough 2. HTN. Continue metoprolol, losartan 3. LBBB on EKG. Cardiology consult for further eval
[2021-06-24] MEDS: LOSARTAN 50 MG TAB PO SCH (08:50)
[2021-06-24] MEDS: METOPROLOL TARTRATE 25 MG TAB PO SCH (08:50)
[2021-06-24] MEDS: HEPARIN SODIUM,PORCINE/PF 5,000 UNIT/0.5 ML SYRINGE SQ SCH (08:50)
[2021-06-24] MEDS: MULTIVITAMINS, THERA 1 EACH TAB PO SCH (08:50)
[2021-06-24] MEDS: PANTOPRAZOLE 40 MG/10 ML VIAL IVP SCH ×2 (08:51→20:29)
--- NOTE | 2021-06-24 09:54 | P.CRDCN ---
History of Present Illness History of present illness: HISTORY OF PRESENTING ILLNESS This is a pleasant 86-year-old male past medical history significant for hypertension, hypothyroidism, colon/rectal cancer status post bowel resection and colostomy. 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 We are re-consulted for new onset atrial fibrillation. Patient is seen and examined at bedside. Patient presented to the hospital in 06/20/2021 with symptoms of progressive dyspnea, cough with productive clear sputum. At that time she had some heartburn. Her troponins were negative x 4, no EKG evidence of ischemia. She denies any chest pain. She does continue to have shortness of breath, symptoms of orthopnea, dyspnea on exertion. She is currently being treated for pneumonia. EKG on admission revealed left bundle branch block and left axis deviation, no prior EKG to compare. 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 She is currently being treated with Rocephin and Zithromax for left lower lobe pneumonia. Patient denies any history of atrial fibrillation, DC, stroke, coronary artery disease or diabetes. She is a non-smoker, denies alcohol use. She states she occasionally does feel palpitations. She denies frequent falls, history of GI ulcers or bleeding. DIAGNOSTICS EKG on 06/23/21 and 06/24/21 revealed atrial fibrillation HR 93-106, left bundle branch block, left axis deviation. Echocardiogram 06/21/2021 revealed EF 5560 percent, moderate concentric left ventricular hypertrophy is mitral regurgitation. Telemetry tracings indicate atrial fibrillation heart rates 95-low 100s, this morning she was slightly tachycardic HR 115-120s. CT chest revealed no evidence of pulmonary embolism. Chest x-ray revealed large hiatal hernia with left basilar infiltrate. Correlate for interstitial chronic lung disease. Laboratory reviewed, WBC 13.2, hemoglobin 15.4, platelets 378, d-dimer 4.8, sodium 134, potassium 3.6, BUN 15, serum creatinine 0.7, AST 38, ALT 38, troponin negative 3, COVID-19 PCR negative, UA positive for UTI, TSH 0.132, Free T4 3.17. Current home medications include metoprolol succinate 25 mg daily, Synthroid 175mcg daily REVIEW OF SYSTEMS At the time of my exam: CONSTITUTIONAL: Denies fever or chills. CARDIOVASCULAR: +shortness of breath, +palpitations +orthopnea Denies chest pain, shortness of breath, PND RESPIRATORY: + cough. GASTROINTESTINAL: Denies abdominal pain, diarrhea, constipation, nausea or vomiting. MUSCULOSKELETAL: Denies myalgias. NEUROLOGIC: Denies numbness, tingling, headacbe or weakness. ENDOCRINE: Denies fatigue, weight change, polydipsia or polyurina. GENITOURINARY: Denies burning, hematuria or urgency with micturation. HEMATOLOGIC: Denies history of anemia or bleeding. PHYSICAL EXAMINATION Blood pressure 144/90, heart rate 110, afebrile, maintaining saturations on 3 L nasal cannula. CONSTITUTIONAL: No apparent distress. HEENT: Head is normocephalic. Pupils are equal, round. Sclerae anicteric. Mucous membranes of the mouth are moist. No JVD. No carotid bruit. CHEST EXAMINATION: Lungs are mild crackles bases bilaterally to auscultation. No chest wall tenderness is noted on palpation or with deep breathing. HEART EXAMINATION: Irregular rate and rhythm. S1, S2 heard. Systolic murmur at base ABDOMEN: Soft, nontender. Positive bowel sounds. EXTREMITIES: 2+ peripheral pulses, no lower extremity edema and no calf tenderness. NEUROLOGIC EXAMINATION: Patient is awake, alert and oriented x3. ASSESSMENT Chest pain, atypical, acute coronary syndrome has been ruled out New Onset paroxysmal atrial fibrillation -[id number] score 3 Shortness of breath, dyspnea on exertion, possibly related to interstitial lung disease vs diastolic heart failure exacerbation. Patient did receive consistent IV fluids during admission Left bundle branch block History of hypertension Hypothyroidism PLAN -Increase metoprolol tartrate to 50mg BID -Stop IV fluids -Repeat BNP today, consider IV diuresis -Discussed atrial fibrillation, risk of stroke with the patient and the benefits an risk of anticoagulation. Patient is agreement in taking anticoagulation -Will start Eliquis 5mg BID, consult case management for assistance in cost -Continue Losartan for BP and adjust accordingly -Continue cardiac telemetry -Further recommendations based on clinical course Thank you kindly for this consultation. Nurse Practitioner note has been reviewed, I agree with a documented findings and plan of care. Patient was seen and examined. Past Medical History Past Medical History: Hypertension, Thyroid Disorder Additional Past Medical History / Comment(s): colon/rectal cancer History of Any Multi-Drug Resistant Organisms: None Reported Past Surgical History: Bowel Resection, Orthopedic Surgery Additional Past Surgical History / Comment(s): Bowel resection with colostomy Past Psychological History: Anxiety Smoking Status: Never smoker Past Alcohol Use History: None Reported Past Drug Use History: None Reported Medications and Allergies Home Medications Medication Instructions Recorded Confirmed Type Levothyroxine Sodium [Synthroid] 175 mcg PO DAILY 06/20/21 06/20/21 History Metoprolol Succinate (ER) [Toprol 25 mg PO HS 06/20/21 06/20/21 History Xl] Multivitamins, Thera [Multivitamin 1 tab PO DAILY 06/20/21 06/20/21 History (formulary)] Apixaban [Eliquis] 5 mg PO BID 30 Days #60 tab 06/24/21 Rx Allergies Allergy/AdvReac Type Severity Reaction Status Date / Time No Known Allergies Allergy Verified 06/20/21 14:44 Physical Exam Vitals: Vital Signs Temp Pulse Pulse Resp BP BP Pulse Ox 06/21/21 01:56 98.5 F 77 17 163/81 97 06/20/21 21:00 98.4 F 86 20 185/102 97 06/20/21 20:15 82 19 167/74 98 06/20/21 18:51 80 18 154/84 98 06/20/21 17:00 99.5 F 84 18 156/76 94 L 06/20/21 14:44 82 18 156/76 98 06/20/21 12:52 98.7 F 84 20 193/98 98 Intake and Output 06/20/21 06/20/21 06/21/21 14:59 22:59 06:59 Other: # Voids 1 1 Weight 95.254 kg 95.254 kg Results 06/23/21 05:50 06/23/21 05:50 Cardiac Enzymes 06/20/21 06/20/21 06/20/21 Range/Units 13:45 13:45 22:00 AST 38 H (14-36) U/L Troponin I 0.017 0.023 (0.000-0.034) ng/mL 06/21/21 Range/Units 00:48 AST (14-36) U/L Troponin I 0.020 (0.000-0.034) ng/mL Coagulation 06/20/21 Range/Units 15:00 PT 10.8 (9.0-12.0) sec APTT 23.7 (22.0-30.0) sec CBC 06/20/21 Range/Units 13:34 WBC 13.2 H (3.8-10.6) k/uL RBC 5.28 (3.80-5.40) m/uL Hgb 15.4 (11.4-16.0) gm/dL Hct 45.6 (34.0-46.0) % Plt Count 378 (150-450) k/uL Comprehensive Metabolic Panel 06/20/21 Range/Units 13:45 Sodium 134 L (137-145) mmol/L Potassium 3.6 (3.5-5.1) mmol/L Chloride 94 L (98-107) mmol/L Carbon Dioxide 32 H (22-30) mmol/L BUN 15 (7-17) mg/dL Creatinine 0.70 (0.52-1.04) mg/dL Glucose 132 H (74-99) mg/dL Calcium 10.4 H (8.4-10.2) mg/dL AST 38 H (14-36) U/L ALT 38 H (4-34) U/L Alkaline Phosphatase 94 (38-126) U/L Total Protein 7.0 (6.3-8.2) g/dL Albumin 3.5 (3.5-5.0) g/dL Current Medications Generic Name Dose Route Start Last Admin Trade Name Freq PRN Reason Stop Dose Admin Acetaminophen 650 mg 06/20/21 18:57 Acetaminophen Tab 325 Mg Tab PO Q6HR PRN Mild Pain or Fever > 100.5 Albuterol/Ipratropium 3 ml 06/21/21 08:00 Ipratropium-Albuterol 3 Ml Neb INHALATION RT-QID CHRISTINA Sodium Chloride 1,000 mls @ 75 mls/hr 06/20/21 13:15 06/20/21 20:29 Saline 0.9% IV 75 mls/hr .[id number] CHRISTINA Administration Ceftriaxone Sodium 1 gm/ 50 mls @ 100 mls/hr 06/21/21 09:00 Sodium Chloride IVPB Q24HR CHRISTINA Ibuprofen 400 mg 06/20/21 18:57 Ibuprofen 400 Mg Tab PO Q6HR PRN Mild Pain or Fever > 100.5 Metoprolol Succinate 25 mg 06/20/21 21:00 06/20/21 21:17 Metoprolol Succinate (Er) 25 Mg Tab.Er.24h PO 25 mg HS CHRISTINA Administration Multivitamins 1 each 06/21/21 09:00 Multivitamins, Thera 1 Each Tab PO DAILY CHRISTINA Naloxone HCl 0.2 mg 06/20/21 18:57 Naloxone 0.4 Mg/Ml 1 Ml Vial IV Q2M PRN Opioid Reversal Pantoprazole Sodium 40 mg 06/21/21 09:00 Pantoprazole 40 Mg/10 Ml Vial IV DAILY CHRISTINA Intake and Output 06/20/21 06/20/21 06/21/21 14:59 22:59 06:59 Other: # Voids 1 1 Weight 95.254 kg 95.254 kg Patient Weight 06/21/21 06:59 Weight 95.254 kg 06/20/21 13:34 06/20/21 13:45
--- NOTE | 2021-06-24 11:44 | P.PN ---
Subjective Progress Note Date: 06/24/21 Wendy Desai is an 86 yo F with PMH of COPD who presented to the ED complaining of cough and shortness of breath over the past 2 weeks. She complains that her symptoms worsened to the point that she was unable to catch her breath so came to the hospital. She denies fever, chills, loss of sense of smell or taste. On presentation pt hypertensive and hypoxic, requiring 2 LPM O2 via NC. Labs showing elevated WBC, trop negative, hyponatremia and elevated T4. CXR and CTA chest with bilateral infiltrate. She is a nonsmoker. Initial EKG showing LBBB. 06/24/2021 Continues on Rocephin, Zithromax , nebulized bronchodilators, maintaining O2 sats in the 90s on 3 L nasal cannula. Tachycardic with heart rates in the 1 teens. Beta suhas increased. T-max 99.5. Lungs essentially clear. Denies chest pain. Occasional palpitations . Denies increased shortness of breath .Complains of weakness. Objective - Vital Signs Vital signs: Vital Signs Temp 99.5 F 06/24/21 07:00 Pulse 97 06/24/21 08:30 Resp 18 06/24/21 08:00 BP 144/90 06/24/21 07:00 Pulse Ox 92 L 06/24/21 08:20 Intake & Output 06/23/21 06/24/21 06/24/21 18:59 06:59 18:59 Intake Total 1140 480 Balance 1140 480 Intake: Intake, IV Titration 900 Amount Azithromycin 500 mg In 250 Sodium Chloride 0.9% 250 ml @ 250 mls/hr IVPB DAILY [facility] Rx#:[id number] Sodium Chloride 0.9% 1, 600 000 ml @ 75 mls/hr IV . [id number] [facility] Rx#:[id number] cefTRIAXone 1 gm In 50 Sodium Chloride 0.9% 50 ml @ 100 mls/hr IVPB Q24HR [facility] Rx#:[id number] Oral 240 480 Other: Voiding Method Toilet # Voids 1 1 - Exam General: well developed, well nourished, NAD HEENT: NC, AT, mmm Neck: supple, no thyromegaly, no JVD CV: S1 and S2,IRR, tachycardic, positive systolic murmur Lungs: Normal effort, clear throughout Abd: soft, nontender, non distended Neuro: alert and oriented x3, no focal deficit Skin: warm and dry - Labs CBC & Chem 7: 06/23/21 05:50 06/23/21 05:50 Assessment and Plan Assessment: Acute community acquired pneumonia, left lower lobe Chest pain, atypical, acute coronary syndrome ruled out as per cardiology New-onset paroxysmal atrial fibrillation Hypertension Left bundle branch block reported per EKG Large hiatal hernia with evidence of distal esophageal thickening Hypothyroidism Plan: Continue current medication regime ,monitoring and symptomatic treatment. Maintain IV antibiotics, nebulized bronchodilators. Antiarrhythmics/anticoagulation as per cardiology. PT/OT/SW consulted, possible BRANDI at discharge. Discharge planning in progress for as early as tomorrow, pending continued improvement, cardiac and pulmonary clearance. The impression and plan of care has been dictated as directed. : I performed a history and examination of this patient, discussed the same with the dictator. I agree with the dictator's note ,documented as a scribe. Any additional findings or plans will be noted.
[2021-06-24] MEDS: AZITHROMYCIN 500 MG in SODIUM CHLORIDE 0.9% 250 ML IVPB SCH (11:57)
[2021-06-24] MEDS: METOPROLOL TARTRATE 50 MG TAB PO SCH (20:28)
[2021-06-24] MEDS: APIXABAN 5 MG TAB PO SCH (20:29)
[2021-06-25 05:41] LABS: T4, Free (Free Thyroxine) 1.6 ng/dL (0.80-1.80)
[2021-06-25 06:56] LABS: African American GFR (CKD) >90 (>60 ml/min/1.73 sqM); Anion Gap 6 mmol/L; Blood Urea Nitrogen 5 mg/dL (7-17); Calcium 8.6 mg/dL (8.4-10.2); Carbon Dioxide 24 mmol/L (22-30); Chloride 99 mmol/L (98-107); Glucose 103 mg/dL (74-99); Non-African American GFR(CKD) 85 (>60 ml/min/1.73 sqM); Potassium 3.7 mmol/L (3.5-5.1); Sodium 129 mmol/L (137-145)
[2021-06-25] MEDS: ACETAMINOPHEN TAB 325 MG TAB PO PRN ×2 (07:12→20:57)
[2021-06-25] MEDS: PANTOPRAZOLE 40 MG/10 ML VIAL IVP SCH ×2 (08:00→20:56)
[2021-06-25] MEDS: APIXABAN 5 MG TAB PO SCH ×2 (08:00→20:57)
[2021-06-25] MEDS: LOSARTAN 50 MG TAB PO SCH (08:00)
[2021-06-25] MEDS: MULTIVITAMINS, THERA 1 EACH TAB PO SCH ×2 (08:00→15:05)
[2021-06-25] MEDS: METOPROLOL TARTRATE 50 MG TAB PO SCH ×2 (08:00→20:57)
[2021-06-25] MEDS: CALCIUM CARBONATE 500 MG CHEWABLE PO PRN ×2 (08:20→22:00)
[2021-06-25] MEDS: AZITHROMYCIN 500 MG in SODIUM CHLORIDE 0.9% 250 ML IVPB SCH (08:45)
[2021-06-25] MEDS: guaiFENesin-DM 600/30MG 1 EACH TAB.ER.12H PO PRN (08:49)
[2021-06-25] MEDS: BENZONATATE 100 MG CAP PO PRN (08:49)
[2021-06-25 09:16] LABS: Basophils # (A) 0.02 X 10*3/uL (0.00-0.10); Basophils % (A) 0.2 %; Eosinophils # (A) 0.13 X 10*3/uL (0.04-0.35); HCT 35.7 % (37.2-46.3); HGB 11.6 g/dL (12.0-15.0); Lymphocytes # (A) 0.91 X 10*3/uL (0.90-5.00); Lymphocytes % (A) 7.1 %; MCH 27.4 pg (27.0-32.0); MCHC 32.5 g/dL (32.0-37.0); MCV 84.2 fL (80.0-97.0); Mean Platelet Volume 9.3 fL (9.5-12.2); Monocytes # (A) 1.92 X 10*3/uL (0.20-1.00); Neutrophils % (A) 75.9 %; Platelet Count 382 X 10*3/uL (140-440); RBC 4.24 X 10*6/uL (4.10-5.20); RDW 12.6 % (11.5-14.5); WBC 12.78 X 10*3/uL (4.50-10.00)
[2021-06-25] MEDS: IPRATROPIUM-ALBUTEROL 3 ML NEB INHALATION SCH ×4 (09:51→20:03)
[2021-06-25] MEDS: BUDESONIDE 0.5 MG/2 ML NEBU INHALATION SCH ×2 (09:51→20:04)
--- NOTE | 2021-06-25 10:46 | P.PN ---
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 We are re-consulted for new onset atrial fibrillation. Patient presented to the hospital in 06/20/2021 with symptoms of progressive dyspnea, cough with productive clear sputum. At that time she had some heartburn. Her troponins were negative x 4, no EKG evidence of ischemia. She denies any chest pain. She does continue to have shortness of breath, symptoms of orthopnea, dyspnea on exertion. She is currently being treated for pneumonia. EKG on admission revealed left bundle branch block and left axis deviation, no prior EKG to compare. 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 Patient denies any history of atrial fibrillation, DC, stroke, coronary artery disease or diabetes. She is a non-smoker, denies alcohol use. She states she occasionally does feel palpitations. She denies frequent falls, history of GI ulcers or bleeding. EKG on 06/23/21 and 06/24/21 revealed atrial fibrillation HR 93-106, left bundle branch block, left axis deviation. Echocardiogram 06/21/2021 revealed EF 5560% moderate concentric left ventricular hypertrophy is mitral regurgitation. 06/25/2021: Patient seen and examined at bedside, she continues to have shortness of breath and cough. She feels short of breath even at rest. She had a difficult night due to her breathing. Telemetry reviewed patient continues to be in atrial fibrillation with controlled ventricular rates. Laboratory data reviewed,proBNP 8430, sodium 129 potassium 3.7, BUN 5, serum creatinine 0.5, WBC 12.7, hemoglobin 11.6, platelets 382. IV fluids have been discontinued. Patient currently maintained on Eliquis 5 mg twice a day, losartan 50 mg daily, metoprolol tartrate 50 mg twice a day. She continues to be on Rocephin and Zithromax for pneumonia treatment. PHYSICAL EXAMINATION Blood pressure 136/63, heart rate 97, Temp 100.2F, maintaining oxygen saturations on 3 L nasal cannula CONSTITUTIONAL: No apparent distress. HEENT: Neck Supple. No JVD. No carotid bruit. CHEST EXAMINATION: Lungs are crackles bases bilaterally to auscultation. No chest wall tenderness is noted on palpation or with deep breathing. HEART EXAMINATION: Irregular rate and rhythm. S1, S2 heard. Systolic murmur at base ABDOMEN: Soft, nontender. Positive bowel sounds. EXTREMITIES: 2+ peripheral pulses, no lower extremity edema and no calf tenderness. NEUROLOGIC EXAMINATION: Patient is awake, alert and oriented x3. ASSESSMENT Chest pain, atypical, acute coronary syndrome has been ruled out New Onset paroxysmal atrial fibrillation -[id number] score 3 Acute diastolic heart failure exacerbation NYHA class IV Hyponatremia Shortness of breath, dyspnea on exertion Left bundle branch block History of hypertension Hypothyroidism PLAN -We will start IV Diuresis 40mg BID -I/Os, daily weights -Monitor renal function and electrolytes -Discussed atrial fibrillation, risk of stroke with the patient and the benefits an risk of anticoagulation. Patient is agreement in taking anticoagulation -Continue Eliquis 5mg BID, per case management this is covered by the patient's insurance and is $45/month -Continue Losartan -Continue cardiac telemetry -Further recommendations based on clinical course Nurse Practitioner note has been reviewed, I agree with a documented findings and plan of care. Patient was seen and examined. Objective - Vital Signs Vital signs: Vital Signs Temp 100.2 F H 06/25/21 07:35 Pulse 77 06/25/21 10:02 Resp 16 06/25/21 10:02 BP 166/63 06/25/21 07:35 Pulse Ox 94 L 06/25/21 09:51 Intake & Output 06/24/21 06/25/21 06/25/21 18:59 06:59 18:59 Intake Total 880 300 240 Balance 880 300 240 Intake: Oral 880 300 240 Other: Voiding Method Toilet Toilet # Voids 2 2 # Bowel Movements 0 - Labs CBC & Chem 7: 06/25/21 06:16 06/25/21 06:16 Labs: Abnormal Lab Results - Last 24 Hours (Table) 06/25/21 06/25/21 Range/Units 06:16 06:16 WBC 12.78 H (4.50-10.00) X 10*3/uL Hgb 11.6 L (12.0-15.0) g/dL Hct 35.7 L (37.2-46.3) % MPV 9.3 L (9.5-12.2) fL Immature Gran # 0.10 H (0.00-0.04) X 10*3/uL Neutrophils # 9.70 H (1.80-7.70) X 10*3/uL Monocytes # 1.92 H (0.20-1.00) X 10*3/uL Sodium 129 L (137-145) mmol/L BUN 5 L (7-17) mg/dL Glucose 103 H (74-99) mg/dL
[2021-06-25 14:01] LABS: Bordedella pertussis Not detected (Not detected); Bordetella holmesII Not detected (Not detected); Bordetella parapertussis Not detected (Not detected)
[2021-06-25] MEDS: FUROSEMIDE 10 MG/ML 4 ML VIAL IV SCH ×2 (15:10→21:05)
[2021-06-25] MEDS ORDERED: IPRATROPIUM-ALBUTEROL 3 ML NEB INHALATION PRN (15:41)
--- NOTE | 2021-06-25 15:58 | P.PN ---
Subjective Progress Note Date: 06/25/21 Wendy Desai is an 86 yo F with PMH of COPD who presented to the ED complaining of cough and shortness of breath over the past 2 weeks. She complains that her symptoms worsened to the point that she was unable to catch her breath so came to the hospital. She denies fever, chills, loss of sense of smell or taste. On presentation pt hypertensive and hypoxic, requiring 2 LPM O2 via NC. Labs showing elevated WBC, trop negative, hyponatremia and elevated T4. CXR and CTA chest with bilateral infiltrate. She is a nonsmoker. Initial EKG showing LBBB. 06/24/2021 Continues on Rocephin, Zithromax , nebulized bronchodilators, maintaining O2 sats in the 90s on 3 L nasal cannula. Tachycardic with heart rates in the 1 teens. Beta suhas increased. T-max 99.5. Lungs essentially clear. Denies chest pain. Occasional palpitations . Denies increased shortness of breath .Complains of weakness. 06/25/2021 maintained on Zithromax, Rocephin with T-max 100.2, WBC increased to 12.78. Complains of nonproductive cough. Sodium 129, renal function stable. Levothyroxine had been on hold, repeat TSH and free T4 0.38/1.6. Maintaining O2 sats in the low 90s on 3 L nasal cannula. Telemetry reporting atrial fibrillation with controlled ventricular rate. BNP 8430 ,IV push diuretics initiated as per cardiology. Reports she been up in chair yesterday Objective - Vital Signs Vital signs: Vital Signs Temp 100.2 F H 06/25/21 07:35 Pulse 80 06/25/21 12:32 Resp 16 06/25/21 12:32 BP 166/63 06/25/21 07:35 Pulse Ox 94 L 06/25/21 09:51 Intake & Output 06/24/21 06/25/21 06/25/21 18:59 06:59 18:59 Intake Total 880 300 240 Balance 880 300 240 Intake: Oral 880 300 240 Other: Voiding Method Toilet Toilet # Voids 2 2 1 # Bowel Movements 0 - Exam General: well developed, well nourished, NAD HEENT: NC, AT, mmm Neck: supple, no thyromegaly, no JVD CV: S1 and S2,IRR, tachycardic, positive systolic murmur Lungs: Bibasilar crackles Abd: soft, nontender, non distended Neuro: alert and oriented x3, no focal deficit Skin: warm and dry - Labs CBC & Chem 7: 06/25/21 06:16 06/25/21 06:16 Labs: Abnormal Lab Results - Last 24 Hours (Table) 06/25/21 06/25/21 Range/Units 06:16 06:16 WBC 12.78 H (4.50-10.00) X 10*3/uL Hgb 11.6 L (12.0-15.0) g/dL Hct 35.7 L (37.2-46.3) % MPV 9.3 L (9.5-12.2) fL Immature Gran # 0.10 H (0.00-0.04) X 10*3/uL Neutrophils # 9.70 H (1.80-7.70) X 10*3/uL Monocytes # 1.92 H (0.20-1.00) X 10*3/uL Sodium 129 L (137-145) mmol/L BUN 5 L (7-17) mg/dL Glucose 103 H (74-99) mg/dL Assessment and Plan Assessment: Acute community acquired pneumonia, left lower lobe Acute CHF exacerbation, diastolic dysfunction Chest pain, atypical, acute coronary syndrome ruled out as per cardiology New-onset paroxysmal atrial fibrillation Hypertension Left bundle branch block reported per EKG Large hiatal hernia with evidence of distal esophageal thickening History of Hypothyroidism, presented with hyperthyroidism, which possibly induced the atrial fibrillation. At dc,decrease home dose. Hyponatremia Plan: Continue current medication regime ,monitoring and symptomatic treatment. Maintain IV antibiotics, nebulized bronchodilators. Anticoagulated on Eliquis. Aggressive pulmonary toileting with Pulmicort and incentive spirometer ordered. Evaluated by a physical therapy with subacute rehab recommended at discharge. Diuretics as per cardiology. Close monitoring of renal function, electrolytes with repeat labs ordered for a.m. chest x-ray ordered for a.m. The impression and plan of care has been dictated as directed. : I performed a history and examination of this patient, discussed the same with the dictator. I agree with the dictator's note ,documented as a scribe. Any additional findings or plans will be noted.
--- NOTE | 2021-06-25 19:14 | P.PN ---
Subjective Progress Note Date: 06/25/21 Principal diagnosis: Left lower lobe pneumonia community-acquired patient appropriately treated with Rocephin and Zithromax Ongoing continuous cough likely related to pneumonia as well as component of GERD continue treatment with Protonix Large hiatal hernia with evidence of distal esophageal thickening Elevated d-dimer likely due to inflammatory process Mild Hyponatremia 06/25/2021, patient seen eval examined during the rounds labs reviewed medications reviewed, remains on 2 L oxygen still have dry nonproductive cough but severity slightly improved, patient able to get up with the assistance, was sitting several hours on the bedside chair, will get a follow-up chest x-ray Patient is a 86-year-old female seen eval reexamined continued to have complaint of ongoing cough shortness of breath, patient is a nonsmoker symptoms started about 2 weeks ago, however denies any chest pain, she does have symptoms of ongoing heartburn, patient has been immunized again scored, her past medical history significant for hypothyroidism, hypertension hypertensive cardiovascular disease, and hypothyroidism, history of bowel resection and colostomy due to history of colon cancer status post colostomy, and influenza and covert testing has been negative her chest x-ray with left lower lobe infiltrate along with large hiatal hernia some component of chronic pulmonary fibrosis, she underwent computed tomography scan of his chest which was negative for pulmonary embolism distillation esophageal wall thickening is noted, with presence of ground glass and reticular opacities, currently patient is appropriately treated with bronchodilators IV antibiotics with azithromycin and Rocephin Objective - Vital Signs Vital signs: Vital Signs Temp 99.2 F 06/25/21 14:00 Pulse 82 06/25/21 16:05 Resp 16 06/25/21 16:05 BP 147/81 06/25/21 14:00 Pulse Ox 91 L 06/25/21 14:00 Intake & Output 06/25/21 06/25/21 06/26/21 06:59 18:59 06:59 Intake Total 300 420 Balance 300 420 Weight 89.35 kg Intake: Oral 300 420 Other: Voiding Method Toilet # Voids 2 1 # Bowel Movements 0 - Exam - Constitutional General appearance: average body habitus, cooperative, disheveled, mild distress - EENT Eyes: PERRLA ENT: normal oropharynx Ears: bilateral: normal - Neck Neck: normal ROM Carotids: bilateral: upstroke normal - Respiratory Respiratory: bilateral: CTA - Cardiovascular Rhythm: regular Heart sounds: normal: S1, S2 - Gastrointestinal General gastrointestinal: distended, hyperactive bowel sounds, soft - Integumentary Integumentary: normal turgor - Neurologic Neurologic: CNII-XII intact - Musculoskeletal Musculoskeletal: gait normal, generalized weakness, strength equal bilaterally - Psychiatric Psychiatric: A&O x's 3 - Labs CBC & Chem 7: 06/25/21 06:16 06/25/21 06:16 Labs: Abnormal Lab Results - Last 24 Hours (Table) 06/25/21 06/25/21 Range/Units 06:16 06:16 WBC 12.78 H (4.50-10.00) X 10*3/uL Hgb 11.6 L (12.0-15.0) g/dL Hct 35.7 L (37.2-46.3) % MPV 9.3 L (9.5-12.2) fL Immature Gran # 0.10 H (0.00-0.04) X 10*3/uL Neutrophils # 9.70 H (1.80-7.70) X 10*3/uL Monocytes # 1.92 H (0.20-1.00) X 10*3/uL Sodium 129 L (137-145) mmol/L BUN 5 L (7-17) mg/dL Glucose 103 H (74-99) mg/dL Assessment and Plan Assessment: Left lower lobe pneumonia community-acquired patient appropriately treated with Rocephin and Zithromax Ongoing continuous cough likely related to pneumonia as well as component of GERD continue treatment with Protonix Large hiatal hernia with evidence of distal esophageal thickening Elevated d-dimer likely due to inflammatory process Mild Hyponatremia Plan: Continue broad-spectrum antibiotic Continue Protonix Cough drops and cough suppressant like Tessalon Perles Chest x-ray tomorrow We'll follow clinical course: Time with Patient: Greater than 30
[2021-06-26] MEDS: BENZONATATE 100 MG CAP PO PRN (03:55)
[2021-06-26 06:07] LABS: African American GFR (CKD) >90 (>60 ml/min/1.73 sqM); Anion Gap 7 mmol/L; Blood Urea Nitrogen 7 mg/dL (7-17); Calcium 8.9 mg/dL (8.4-10.2); Carbon Dioxide 27 mmol/L (22-30); Chloride 95 mmol/L (98-107); Glucose 114 mg/dL (74-99); Magnesium 1.5 mg/dL (1.6-2.3); Non-African American GFR(CKD) 81 (>60 ml/min/1.73 sqM); Potassium 3.5 mmol/L (3.5-5.1); Sodium 129 mmol/L (137-145)
[2021-06-26] MEDS ORDERED: Magnesium Replacement Protocol 1 EACH MISC MISCELLANE PRN (07:17)
--- NOTE | 2021-06-26 07:52 | XR ---
EXAMINATION TYPE: XR chest 1V portable DATE OF EXAM: 06/26/2021 COMPARISON: Chest x-ray 06/20/2021 HISTORY: Pneumonia TECHNIQUE: Single frontal view of the chest is obtained. FINDINGS: Retrocardiac partial intrathoracic stomach is again seen. Bilateral airspace disease has p rogressed in the interval. No evident pneumothorax. Heart is likely stable. Interstitium is increased . IMPRESSION: Correlate for pneumonia versus edema, additional findings above.
[2021-06-26] MEDS: BUDESONIDE 0.5 MG/2 ML NEBU INHALATION SCH ×2 (08:23→21:01)
[2021-06-26] MEDS: IPRATROPIUM-ALBUTEROL 3 ML NEB INHALATION SCH ×4 (08:23→21:01)
[2021-06-26] MEDS: MAGNESIUM SULFATE-D5W PMX 1 GM in DEXTROSE/WATER 1 100ML.BAG IVPB SCH ×2 (08:40→13:52)
[2021-06-26] MEDS: APIXABAN 5 MG TAB PO SCH ×2 (08:41→21:11)
[2021-06-26] MEDS: METOPROLOL TARTRATE 50 MG TAB PO SCH ×2 (08:41→21:12)
[2021-06-26] MEDS: LOSARTAN 50 MG TAB PO SCH (08:42)
[2021-06-26] MEDS: FUROSEMIDE 10 MG/ML 4 ML VIAL IV SCH ×2 (08:42→16:22)
[2021-06-26] MEDS: MULTIVITAMINS, THERA 1 EACH TAB PO SCH (08:42)
[2021-06-26] MEDS: PANTOPRAZOLE 40 MG/10 ML VIAL IVP SCH ×2 (08:43→21:11)
[2021-06-26 08:58] LABS: Basophils # (A) 0.02 X 10*3/uL (0.00-0.10); Basophils % (A) 0.1 %; Eosinophils # (A) 0.18 X 10*3/uL (0.04-0.35); Eosinophils % (A) 1.3 %; HCT 37.3 % (37.2-46.3); HGB 12.2 g/dL (12.0-15.0); Lymphocytes % (A) 6.3 %; MCH 27.4 pg (27.0-32.0); MCHC 32.7 g/dL (32.0-37.0); MCV 83.8 fL (80.0-97.0); Mean Platelet Volume 9.6 fL (9.5-12.2); Monocytes # (A) 1.97 X 10*3/uL (0.20-1.00); Monocytes % (A) 13.7 %; Neutrophils # (A) 11.22 X 10*3/uL (1.80-7.70); Platelet Count 416 X 10*3/uL (140-440); RBC 4.45 X 10*6/uL (4.10-5.20); RDW 12.6 % (11.5-14.5); WBC 14.37 X 10*3/uL (4.50-10.00)
--- NOTE | 2021-06-26 10:26 | P.PN ---
Subjective Progress Note Date: 06/26/21 Principal diagnosis: Left lower lobe pneumonia community-acquired patient appropriately treated with Rocephin and Zithromax Ongoing continuous cough likely related to pneumonia as well as component of GERD continue treatment with Protonix Large hiatal hernia with evidence of distal esophageal thickening Elevated d-dimer likely due to inflammatory process Mild Hyponatremia 06/26/2021, patient seen eval examined during the rounds labs reviewed medications reviewed, shortness of breath slightly better cough has improved, patient is getting antibiotics as well as gentle diuresis, patient remains afebrile oxygen saturation is 93% on 3 L, patient continued to manifest bilat eral airspace disease, no pneumothorax, patient remains on the Zithromax IV bronchodilators, Rocephin, labs reviewed white cell count is 14,300, will do a trial of IV steroids for interstitial pneumonia continue diuresis with Lasix 06/25/2021, patient seen eval examined during the rounds labs reviewed medications reviewed, remains on 2 L oxygen still have dry nonproductive cough but severity slightly improved, patient able to get up with the assistance, was sitting several hours on the bedside chair, will get a follow-up chest x-ray Patient is a 86-year-old female seen eval reexamined continued to have complaint of ongoing cough shortness of breath, patient is a nonsmoker symptoms started about 2 weeks ago, however denies any chest pain, she does have symptoms of ongoing heartburn, patient has been immunized again scored, her past medical history significant for hypothyroidism, hypertension hypertensive cardiovascular disease, and hypothyroidism, history of bowel resection and colostomy due to history of colon cancer status post colostomy, and influenza and covert testing has been negative her chest x-ray with left lower lobe infiltrate along with large hiatal hernia some component of chronic pulmonary fibrosis, she underwent computed tomography scan of his chest which was negative for pulmonary embolism distillation esophageal wall thickening is noted, with presence of ground glass and reticular opacities, currently patient is appropriately treated with bronchodilators IV antibiotics with azithromycin and Rocephin Objective - Vital Signs Vital signs: Vital Signs Temp 98.5 F 06/26/21 07:39 Pulse 104 H 06/26/21 08:38 Resp 21 06/26/21 07:39 BP 161/81 06/26/21 07:39 Pulse Ox 93 L 06/26/21 07:39 Intake & Output 06/25/21 06/26/21 06/26/21 18:59 06:59 18:59 Intake Total 420 180 118 Output Total 1300 Balance 420 -1120 118 Weight 89.35 kg Intake: Oral 420 180 118 Output: Urine 1300 Other: Voiding Method External Catheter # Voids 1 - Exam - Constitutional General appearance: average body habitus, cooperative, disheveled, mild distress - EENT Eyes: PERRLA ENT: normal oropharynx Ears: bilateral: normal - Neck Neck: normal ROM Carotids: bilateral: upstroke normal - Respiratory Respiratory: bilateral: CTA - Cardiovascular Rhythm: regular Heart sounds: normal: S1, S2 - Gastrointestinal General gastrointestinal: distended, hyperactive bowel sounds, soft - Integumentary Integumentary: normal turgor - Neurologic Neurologic: CNII-XII intact - Musculoskeletal Musculoskeletal: gait normal, generalized weakness, strength equal bilaterally - Psychiatric Psychiatric: A&O x's 3 - Labs CBC & Chem 7: 06/26/21 05:14 06/26/21 05:14 Labs: Abnormal Lab Results - Last 24 Hours (Table) 06/26/21 06/26/21 Range/Units 05:14 05:14 WBC 14.37 H (4.50-10.00) X 10*3/uL Immature Gran # 0.08 H (0.00-0.04) X 10*3/uL Neutrophils # 11.22 H (1.80-7.70) X 10*3/uL Monocytes # 1.97 H (0.20-1.00) X 10*3/uL Sodium 129 L (137-145) mmol/L Chloride 95 L (98-107) mmol/L Glucose 114 H (74-99) mg/dL Magnesium 1.5 L (1.6-2.3) mg/dL Assessment and Plan Assessment: Left lower lobe pneumonia community-acquired patient appropriately treated with Rocephin and Zithromax Acute exacerbation of Heart failure with preserved ejection fraction, with high BNP Component of interstitial pneumonia as well Ongoing continuous cough likely related to pneumonia, diastolic heart failure, as well as component of GERD continue treatment with Protonix Large hiatal hernia with evidence of distal esophageal thickening Elevated d-dimer likely due to inflammatory process Mild Hyponatremia Plan: Continue broad-spectrum antibiotic Continue Protonix Continue diuresis Solu-Medrol 40 mg IV every 12 Cough drops and cough suppressant like Tessalon Perles Chest x-ray reviewed We'll follow clinical course: Time with Patient: Greater than 30
--- NOTE | 2021-06-26 11:22 | P.PN ---
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 We are re-consulted for new onset atrial fibrillation. Patient presented to the hospital in 06/20/2021 with symptoms of progressive dyspnea, cough with productive clear sputum. At that time she had some heartburn. Her troponins were negative x 4, no EKG evidence of ischemia. She denies any chest pain. She does continue to have shortness of breath, symptoms of orthopnea, dyspnea on exertion. She is currently being treated for pneumonia. EKG on admission revealed left bundle branch block and left axis deviation, no prior EKG to compare. 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 Patient denies any history of atrial fibrillation, SC, stroke, coronary artery disease or diabetes. She is a non-smoker, denies alcohol use. She states she occasionally does feel palpitations. She denies frequent falls, history of GI ulcers or bleeding. EKG on 06/23/21 and 06/24/21 revealed atrial fibrillation HR 93-106, left bundle branch block, left axis deviation. Echocardiogram 06/21/2021 revealed EF 5560% moderate concentric left ventricular hypertrophy is mitral regurgitation. 06/26/21 Patient seen and examined at bedside, she continues to have shortness of breath and cough. Shortness of breath has slightly improved. She was up all night urinating. Telemetry reviewed patient continues to be in atrial fibrillation with controlled ventricular rates, occasionally up to 120s. Laboratory data reviewed, WBC 14, hemoglobin 12, platelets 416, sodium 129, potassium 3.5, BUN 7, serum creatinine 0.6, magnesium 1.5. Patient currently maintained on IV Lasix 40mg BID, Eliquis 5 mg twice a day, losartan 50 mg daily, metoprolol tartrate 50 mg twice a day. She continues to be on Rocephin and Zithromax for pneumonia treatment. Patient with 1.3L urine output over the past 24 hours. PHYSICAL EXAMINATION Blood pressure 161/81, heart rate 89, afebrile, maintaining saturations on 3 L nasal cannula CONSTITUTIONAL: No apparent distress. HEENT: Neck Supple. No JVD. No carotid bruit. CHEST EXAMINATION: Lungs are crackles bases bilaterally to auscultation. No chest wall tenderness is noted on palpation or with deep breathing. HEART EXAMINATION: Irregular rate and rhythm. S1, S2 heard. Systolic murmur at base ABDOMEN: Soft, nontender. Positive bowel sounds. EXTREMITIES: 2+ peripheral pulses, no lower extremity edema and no calf te nderness. NEUROLOGIC EXAMINATION: Patient is awake, alert and oriented x3. ASSESSMENT Chest pain, atypical, acute coronary syndrome has been ruled out New Onset paroxysmal atrial fibrillation -[id number] score 3 Acute diastolic heart failure exacerbation NYHA class IV Hyponatremia Shortness of breath, dyspnea on exertion Left bundle branch block History of hypertension Hypothyroidism PLAN -Continue IV Diuresis Lasix 40mg BID -I/Os, daily weights -Monitor renal function and electrolytes -Discussed atrial fibrillation, risk of stroke with the patient and the benefits an risk of anticoagulation. Patient is agreement in taking anticoagulation -Continue Eliquis 5mg BID, per case management this is covered by the patient's insurance and is $45/month -Continue Losartan -Continue cardiac telemetry -Further recommendations based on clinical course Nurse Practitioner note has been reviewed, I agree with a documented findings and plan of care. Patient was seen and examined. Objective - Vital Signs Vital signs: Vital Signs Temp 98.5 F 06/26/21 07:39 Pulse 104 H 06/26/21 08:38 Resp 21 06/26/21 07:39 BP 161/81 06/26/21 07:39 Pulse Ox 93 L 06/26/21 07:39 Intake & Output 06/25/21 06/26/21 06/26/21 18:59 06:59 18:59 Intake Total 420 180 118 Output Total 1300 Balance 420 -1120 118 Weight 89.35 kg Intake: Oral 420 180 118 Output: Urine 1300 Other: Voiding Method External Catheter # Voids 1 - Labs CBC & Chem 7: 06/26/21 05:14 06/26/21 05:14 Labs: Abnormal Lab Results - Last 24 Hours (Table) 06/26/21 06/26/21 Range/Units 05:14 05:14 WBC 14.37 H (4.50-10.00) X 10*3/uL Immature Gran # 0.08 H (0.00-0.04) X 10*3/uL Neutrophils # 11.22 H (1.80-7.70) X 10*3/uL Monocytes # 1.97 H (0.20-1.00) X 10*3/uL Sodium 129 L (137-145) mmol/L Chloride 95 L (98-107) mmol/L Glucose 114 H (74-99) mg/dL Magnesium 1.5 L (1.6-2.3) mg/dL
[2021-06-26] MEDS: AZITHROMYCIN 500 MG in SODIUM CHLORIDE 0.9% 250 ML IVPB SCH (11:31)
[2021-06-26] MEDS: methylPREDNISolone SOD SUCCI 40 MG/ML 1 ML VIAL IV SCH (21:11)
[2021-06-26] MEDS: CALCIUM CARBONATE 500 MG CHEWABLE PO PRN (21:27)
--- NOTE | 2021-06-26 22:26 | P.PN ---
Subjective Progress Note Date: 06/26/21 Wendy Desai is an 86 yo F with PMH of COPD who presented to the ED complaining of cough and shortness of breath over the past 2 weeks. She complains that her symptoms worsened to the point that she was unable to catch her breath so came to the hospital. She denies fever, chills, loss of sense of smell or taste. On presentation pt hypertensive and hypoxic, requiring 2 LPM O2 via NC. Labs showing elevated WBC, trop negative, hyponatremia and elevated T4. CXR and CTA chest with bilateral infiltrate. She is a nonsmoker. Initial EKG showing LBBB. 06/24/2021 Continues on Rocephin, Zithromax , nebulized bronchodilators, maintaining O2 sats in the 90s on 3 L nasal cannula. Tachycardic with heart rat es in the 1 teens. Beta suhas increased. T-max 99.5. Lungs essentially clear. Denies chest pain. Occasional palpitations . Denies increased shortness of breath .Complains of weakness. 06/25/2021 maintained on Zithromax, Rocephin with T-max 100.2, WBC increased to 12.78. Complains of nonproductive cough. Sodium 129, renal function stable. Levothyroxine had been on hold, repeat TSH and free T4 0.38/1.6. Maintaining O2 sats in the low 90s on 3 L nasal cannula. Telemetry reporting atrial fibrillation with controlled ventricular rate. BNP 8430 ,IV push diuretics initiated as per cardiology. Reports she been up in chair yesterday 06/26/21. Pt continues on 3 LPM O2, feels her breathing is improved although still complains of cough. She is tolerating lasix well with good urine output. She continues on abx. Objective - Vital Signs Vital signs: Vital Signs Temp 99.4 F 06/26/21 19:26 Pulse 106 H 06/26/21 20:00 Resp 18 06/26/21 20:00 BP 137/82 06/26/21 19:26 Pulse Ox 92 L 06/26/21 21:01 Intake & Output 06/26/21 06/26/21 06/27/21 06:59 18:59 06:59 Intake Total 180 416 Output Total 1300 2200 Balance -1120 -1784 Intake: Oral 180 416 Output: Urine 1300 2200 Other: Voiding Method External Catheter External Catheter - Exam Gen: well developed, well nourished, NAD CV: irregular, no murmur Lungs: clear throughout Ext: no edema - Labs CBC & Chem 7: 06/26/21 05:14 06/26/21 05:14 Labs: Abnormal Lab Results - Last 24 Hours (Table) 06/26/21 06/26/21 Range/Units 05:14 05:14 WBC 14.37 H (4.50-10.00) X 10*3/uL Immature Gran # 0.08 H (0.00-0.04) X 10*3/uL Neutrophils # 11.22 H (1.80-7.70) X 10*3/uL Monocytes # 1.97 H (0.20-1.00) X 10*3/uL Sodium 129 L (137-145) mmol/L Chloride 95 L (98-107) mmol/L Glucose 114 H (74-99) mg/dL Magnesium 1.5 L (1.6-2.3) mg/dL Assessment and Plan Plan: Continue with rocephin, azithromycin. Continue duonebs and pulmicort. Continue with IV lasix diuresis
[2021-06-27] MEDS: ACETAMINOPHEN TAB 325 MG TAB PO PRN (01:43)
[2021-06-27 06:32] LABS: African American GFR (CKD) >90 (>60 ml/min/1.73 sqM); Anion Gap 10 mmol/L; Blood Urea Nitrogen 10 mg/dL (7-17); Calcium 8.9 mg/dL (8.4-10.2); Carbon Dioxide 30 mmol/L (22-30); Chloride 88 mmol/L (98-107); Glucose 164 mg/dL (74-99); Magnesium 1.9 mg/dL (1.6-2.3); Non-African American GFR(CKD) 82 (>60 ml/min/1.73 sqM); Potassium 3.7 mmol/L (3.5-5.1); Sodium 128 mmol/L (137-145)
[2021-06-27] MEDS: PANTOPRAZOLE 40 MG/10 ML VIAL IVP SCH ×2 (07:24→22:55)
[2021-06-27] MEDS: methylPREDNISolone SOD SUCCI 40 MG/ML 1 ML VIAL IV SCH ×2 (07:24→22:55)
[2021-06-27] MEDS: MULTIVITAMINS, THERA 1 EACH TAB PO SCH (07:24)
[2021-06-27] MEDS: FUROSEMIDE 10 MG/ML 4 ML VIAL IV SCH ×2 (07:24→16:17)
[2021-06-27] MEDS: LOSARTAN 50 MG TAB PO SCH (07:25)
[2021-06-27] MEDS: METOPROLOL TARTRATE 50 MG TAB PO SCH ×2 (07:25→22:55)
[2021-06-27] MEDS: APIXABAN 5 MG TAB PO SCH ×2 (07:25→22:55)
[2021-06-27] MEDS: AZITHROMYCIN 500 MG in SODIUM CHLORIDE 0.9% 250 ML IVPB SCH (07:26)
[2021-06-27] MEDS: BUDESONIDE 0.5 MG/2 ML NEBU INHALATION SCH ×3 (07:44→20:15)
[2021-06-27] MEDS: IPRATROPIUM-ALBUTEROL 3 ML NEB INHALATION SCH ×5 (07:44→20:15)
[2021-06-27] MEDS: AMIODARONE 200 MG TAB PO SCH ×2 (09:29→22:55)
--- NOTE | 2021-06-27 09:44 | P.PN ---
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 We are re-consulted for new onset atrial fibrillation. Patient presented to the hospital in 06/20/2021 with symptoms of progressive dyspnea, cough with productive clear sputum. At that time she had some heartburn. Her troponins were negative x 4, no EKG evidence of ischemia. She denies any chest pain. She does continue to have shortness of breath, symptoms of orthopnea, dyspnea on exertion. She is currently being treated for pneumonia. EKG on admission revealed left bundle branch block and left axis deviation, no prior EKG to compare. 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 Patient denies any history of atrial fibrillation, MA, stroke, coronary artery disease or diabetes. She is a non-smoker, denies alcohol use. She states she occasionally does feel palpitations. She denies frequent falls, history of GI ulcers or bleeding. EKG on 06/23/21 and 06/24/21 revealed atrial fibrillation HR 93-106, left bundle branch block, left axis deviation. Echocardiogram 06/21/2021 revealed EF 5560% moderate concentric left ventricular hypertrophy is mitral regurgitation. 06/27/21 Patient seen and examined at bedside, she continues to have shortness of breath and cough. But has had improvement. Telemetry reviewed patient continues to be in atrial fibrillation with uncontrolled rates 100-130s this morning, trends have been 95-115s. Laboratory data reviewed, WBC 128, potassium 3.7, BUN 10, serum creatinine 0.6, magnesium 1.9 Patient currently maintained on IV Lasix 40mg BID, Eliquis 5 mg twice a day, losartan 50 mg daily, metoprolol tartrate 50 mg twice a day. She continues to be on Rocephin and Zithromax for pneumonia treatment. Patient is voiding well. Her renal function is stable. Her weight has also decreased. Patient with 2.6L urine output over the past 24 hours. PHYSICAL EXAMINATION Blood pressure 117/86, heart rate 64, afebrile, maintaining saturations at 3 L nasal cannula CONSTITUTIONAL: No apparent distress. HEENT: Neck Supple. No JVD. No carotid bruit. CHEST EXAMINATION: Lungs are crackles bases bilaterally to auscultation. No chest wall tenderness is noted on palpation or with deep breathing. HEART EXAMINATION: Irregular rate and rhythm. S1, S2 heard. Systolic murmur at base ABDOMEN: Soft, nontender. Positive bowel sounds. EXTREMITIES: 2+ peripheral pulses, no lower extremity edema and no calf tenderness. NEUROLOGIC EXAMINATION: Patient is awake, alert and oriented x3. ASSESSMENT Chest pain, atypical, acute coronary syndrome has been ruled out New Onset paroxysmal atrial fibrillation -[id number] score 3 Acute diastolic heart failure exacerbation NYHA class IV Hyponatremia Shortness of breath, dyspnea on exertion Left bundle branch block History of hypertension Hypothyroidism PLAN -Recommend patient stay one more day for further diuresis and rate control -Start amiodarone 400mg BID (for one week) and taper -Continue IV Diuresis Lasix 40mg BID -I/Os, daily weights -Monitor renal function and electrolytes -Discussed atrial fibrillation, risk of stroke with the patient and the benefits an risk of anticoagulation. Patient is agreement in taking anticoagulation -Continue Eliquis 5mg BID, per case management this is covered by the patient's insurance and is $45/month -Continue Losartan -Continue cardiac telemetry -Further recommendations based on clinical course Nurse Practitioner note has been reviewed, I agree with a documented findings and plan of care. Patient was seen and examined. Objective - Vital Signs Vital signs: Vital Signs Temp 98.1 F 06/27/21 07:10 Pulse 64 06/27/21 07:10 Resp 16 06/27/21 07:10 BP 117/85 06/27/21 07:10 Pulse Ox 96 06/27/21 07:45 Intake & Output 06/26/21 06/27/21 06/27/21 18:59 06:59 18:59 Intake Total 416 90 Output Total 2200 400 Balance -1784 -400 90 Intake: Oral 416 90 Output: Urine 2200 400 Other: Voiding Method External Catheter External Catheter - Labs CBC & Chem 7: 06/26/21 05:14 06/27/21 05:03 Labs: Abnormal Lab Results - Last 24 Hours (Table) 06/27/21 Range/Units 05:03 Sodium 128 L (137-145) mmol/L Chloride 88 L (98-107) mmol/L Glucose 164 H (74-99) mg/dL
[2021-06-27] MEDS: BENZONATATE 100 MG CAP PO PRN (10:14)
--- NOTE | 2021-06-27 10:57 | CDI ---
Documentation Clarification Form Date: 06/27/2021 10:30:26 AM From: Christel Cordero RN, CCDS Admit Date: 06/22/2021 03:16:00 PM Patient Name: Wendy Desai Visit Number: [id number] Discharge Date: ATTENTION: The Clinical Documentation Specialists (CDI) and [facility] Coding Staff appreciate your assistance in clarifying documentation. Please respond to the clarification below the line at the bottom and electronically sign. The CDI & [facility] Coding staff will review the response and follow-up if needed. Please note: Queries are made part of the Legal Health Record. If you have any questions, please contact the author of this message via ITS. Dr. Luis Warner The patient has documentation of dyspnea, cough hypoxemia with compliant of ongoing shortness of breath in your consult on 06/23/21. She has been maintained on oxygen this admission. Based on this information and the findings below, is there an additional diagnosis that is clinically appropriate for this patient? History/Risk Factors: Hypertension, Thyroid disorder, Paroxysmal atrial fibrillation, acute diastolic heart failure Clinical Indicators: 86-year-old female present to ED for evaluation of dyspnea, cough ruled in for pneumonia with chest x-ray with left lower lobe infiltrate along with large hiatal hernia some component of chronic pulmonary fibrosis. 06/27 Cardiology progress notes: She continues to have shortness of breath and cough dyspnea on exertion. But has had improvement. Atrial fibrillation with uncontrolled rates 100-130s. Lungs with crackles bases bilaterally. 06/23 Vital signs: (01:43) 183/82 84 20 97.6 90 % 3/L NC 06/27 Vital signs: (01:37) 152/84 103 18 99.0 90 % 4/L NC (07:10) 117/85 64 16 95% 5/L NC Treatment: Bronchodilators Albuterol/Ipratropium 0.5 MG -3MG/3ML Annette Pulmicort .5 MG BID Azithromycin 500 IVPB Daily Tessalon Perles 100 MG PO TID PRN Rocephin 1 GM IVPB Q 24 HR Lasix 40 MG IV Solu-Medrol 40 IV Q 12 HR Is there an additional diagnosis that is clinically appropriate for this patient? Acute Hypoxic Respiratory Failure (pO2 <60 mm Hg or SpO2 <91% on room air) (Template Last Revised: November 2020) MTDD
[2021-06-27 12:15] VITALS: BMI 34.9
--- NOTE | 2021-06-27 22:35 | P.PN ---
Subjective Progress Note Date: 06/27/21 Pt continues to complain of shortness of breath and weakness. She is working with PT. Pt currently maintained on 4 LPM O2, started amiodarone today per Cardiology. She continues on lasix with good urine output. Objective - Vital Signs Vital signs: Vital Signs Temp 97.7 F 06/27/21 15:20 Pulse 91 06/27/21 15:20 Resp 18 06/27/21 15:20 BP 120/73 06/27/21 15:20 Pulse Ox 93 L 06/27/21 15:20 Intake & Output 06/27/21 06/27/21 06/28/21 06:59 18:59 06:59 Intake Total 390 Output Total 400 250 Balance -400 390 -250 Weight 89.35 kg Intake: Oral 390 Output: Urine 400 250 Other: Voiding Method External Catheter External Catheter Bedside Commode # Voids 1 - Exam Gen: well developed, well nourished, NAD CV: irregular, no murmur Lungs: clear throughout Ext: no edema - Labs CBC & Chem 7: 06/26/21 05:14 06/27/21 05:03 Labs: Abnormal Lab Results - Last 24 Hours (Table) 06/27/21 Range/Units 05:03 Sodium 128 L (137-145) mmol/L Chloride 88 L (98-107) mmol/L Glucose 164 H (74-99) mg/dL Assessment and Plan Plan: Continue with rocephin, azithromycin. Continue duonebs and pulmicort. Continue with IV lasix diuresis. Continue eiliquis and start amiodarone per Cardiology
[2021-06-28] MEDS: BENZONATATE 100 MG CAP PO PRN (04:22)
[2021-06-28 05:35] LABS: African American GFR (CKD) 71 (>60 ml/min/1.73 sqM); Anion Gap 9 mmol/L; Blood Urea Nitrogen 27 mg/dL (7-17); Calcium 9.4 mg/dL (8.4-10.2); Carbon Dioxide 30 mmol/L (22-30); Chloride 89 mmol/L (98-107); Glucose 175 mg/dL (74-99); Magnesium 1.8 mg/dL (1.6-2.3); Non-African American GFR(CKD) 62 (>60 ml/min/1.73 sqM); Potassium 3.8 mmol/L (3.5-5.1); Sodium 128 mmol/L (137-145)
[2021-06-28] MEDS: LOSARTAN 50 MG TAB PO SCH (08:18)
[2021-06-28] MEDS: METOPROLOL TARTRATE 50 MG TAB PO SCH (08:18)
[2021-06-28] MEDS: APIXABAN 5 MG TAB PO SCH (08:18)
[2021-06-28] MEDS: MULTIVITAMINS, THERA 1 EACH TAB PO SCH ×2 (08:18→08:21)
[2021-06-28] MEDS: PANTOPRAZOLE 40 MG/10 ML VIAL IVP SCH (08:18)
[2021-06-28] MEDS: FUROSEMIDE 10 MG/ML 4 ML VIAL IV SCH (08:18)
[2021-06-28] MEDS: AMIODARONE 200 MG TAB PO SCH (08:19)
[2021-06-28] MEDS: methylPREDNISolone SOD SUCCI 40 MG/ML 1 ML VIAL IV SCH (08:19)
[2021-06-28] MEDS: IPRATROPIUM-ALBUTEROL 3 ML NEB INHALATION SCH ×2 (08:54→11:44)
[2021-06-28] MEDS: BUDESONIDE 0.5 MG/2 ML NEBU INHALATION SCH (08:54)
--- NOTE | 2021-06-28 09:08 | P.DS ---
Providers Date of admission: 06/22/21 15:16 Expected date of discharge: 06/28/21 Attending physician: Jacob Clinton MD Consults: 06/20/21 18:58 Consult Physician Urgent Consulting Provider: [facility] Consult Reason/Comments: acute chest pain, lbbb Do you want consulting provider notified?: Yes 06/22/21 17:15 Consult Physician Routine Consulting Provider: Luis Warner Consult Reason/Comments: COUGH INTERSTITIAL PNEUMONIA? Do you want consulting provider notified?: Yes 06/23/21 15:13 Consult Physician Urgent Consulting Provider: Gabriel Najera Consult Reason/Comments: reconsult/new afib per ekg Do you want consulting provider notified?: Yes Primary care physician: Debbie Mercy Hospital Course: Wendy Desai is an 86 yo F with PMH of COPD who presented to the ED complaining of cough and shortness of breath over the past 2 weeks. She complains that her symptoms worsened to the point that she was unable to catch her breath so came to the hospital. She denies fever, chills, loss of sense of smell or taste. On presentation pt hypertensive and hypoxic, requiring 2 LPM O2 via NC. Labs showing elevated WBC, trop negative, hyponatremia and elevated T4. CXR and CTA chest with bilateral infiltrate. She is a nonsmoker. Initial EKG showing LBBB. Pt admitted to medicine and seen by pulmonology and cardiology. Pt was treated with IV rocephin and zithromax with improvement in her symptoms. She did not experience any further fevers and oxygen was weaned. She was noted to be in atrial fibrillation on telemetery and subsequently underwent echocardiogram which showed normal LVEF. She was started on eliquis. Rate control was achieved with metoprolol and amiodarone. Pt was diuresed wtih lasix and diagnosed with acute diastolic CHF. She will continue eliquis on discharge. She was noted to be hyperthyroid on initial evaluation and her synthroid was held. Synthroid dose on discharge dropped to 150 mcg daily. She is discharged in stable condition and recommended to continue on eliquis, lasix and wean O2 as tolerated. pt recommended to follow up with her PCP as well as Cardiology upon discharge. Gen: well developed, NAD CV: Irregular, no murmur Lungs: normal effort, clear throughout Skin: warm and dry Patient Condition at Discharge: Stable Plan - Discharge Summary New Discharge Prescriptions: New Apixaban [Eliquis] 5 mg PO BID 30 Days #60 tab Losartan [Cozaar] 50 mg PO DAILY #30 tab Benzonatate [Tessalon Perles] 100 mg PO TID PRN #30 cap PRN Reason: Cough Amoxic-Pot Clav 875-125Mg [Augmentin 875-125] 1 tab PO Q12HR 3 Days #6 tab Levothyroxine Sodium 150 mcg PO DAILY #30 tablet Amiodarone [Cordarone] 400 mg PO BID #60 tab Furosemide [Lasix] 40 mg PO DAILY #30 tab Metoprolol Tartrate [Lopressor] 50 mg PO BID #60 tab Continue Multivitamins, Thera [Multivitamin (formulary)] 1 tab PO DAILY Discontinued Metoprolol Succinate (ER) [Toprol Xl] 25 mg PO HS Levothyroxine Sodium [Synthroid] 175 mcg PO DAILY Discharge Medication List Multivitamins, Thera [Multivitamin (formulary)] 1 tab PO DAILY 06/20/21 [History] Apixaban [Eliquis] 5 mg PO BID 30 Days #60 tab 06/24/21 [Rx] Levothyroxine Sodium 150 mcg PO DAILY #30 tablet 06/25/21 [Rx] Amiodarone [Cordarone] 400 mg PO BID #60 tab 06/28/21 [Rx] Amoxic-Pot Clav 875-125Mg [Augmentin 875-125] 1 tab PO Q12HR 3 Days #6 tab 06/28/21 [Rx] Benzonatate [Tessalon Perles] 100 mg PO TID PRN #30 cap 06/28/21 [Rx] Furosemide [Lasix] 40 mg PO DAILY #30 tab 06/28/21 [Rx] Losartan [Cozaar] 50 mg PO DAILY #30 tab 06/28/21 [Rx] Metoprolol Tartrate [Lopressor] 50 mg PO BID #60 tab 06/28/21 [Rx] Follow up Appointment(s)/Referral(s): Christiano Magdaleno DO [STAFF PHYSICIAN] - 2 Weeks Debbie Jackson DO [Primary Care Provider] - 1-2 days Patient Instructions/Handouts: Apixaban (By mouth), A-fib (Atrial Fibrillation) (DC) Discharge Disposition: TRANSFER TO SNF/ECF
[2021-06-28] MEDS: AZITHROMYCIN 500 MG in SODIUM CHLORIDE 0.9% 250 ML IVPB SCH (09:10)
[2021-06-28 09:23] VITALS: BP 120/80; PULSE 97; RESP 16; TEMP 97.5
--- NOTE | 2021-06-28 09:37 | P.PN ---
Subjective Progress Note Date: 06/28/21 Principal diagnosis: Left lower lobe pneumonia community-acquired patient appropriately treated with Rocephin and Zithromax Ongoing continuous cough likely related to pneumonia as well as component of GERD continue treatment with Protonix Large hiatal hernia with evidence of distal esophageal thickening Elevated d-dimer likely due to inflammatory process Mild Hyponatremia 06/28/2021, patient seen and evaluated examined sitting upright in chair breathing comfortably, cough shortness of breath improved, patient however requires Tessalon Perles, last chest x-ray performed on shows stable interstitial infiltrate, patient is being eval for placement ECF 06/26/2021, patient seen eval examined during the rounds labs reviewed medications reviewed, shortness of breath slightly better cough has improved, patient is getting antibiotics as well as gentle diuresis, patient remains afebrile oxygen saturation is 93% on 3 L, patient continued to manifest bilateral airspace disease, no pneumothorax, patient remains on the Zithromax IV bronchodilators, Rocephin, labs reviewed white cell count is 14,300, will do a trial of IV steroids for interstitial pneumonia continue diuresis with Lasix 06/25/2021, patient seen eval examined during the rounds labs reviewed medications reviewed, remains on 2 L oxygen still have dry nonproductive cough but severity slightly improved, patient able to get up with the assistance, was sitting several hours on the bedside chair, will get a follow-up chest x-ray Patient is a 86-year-old female seen eval reexamined continued to have complaint of ongoing cough shortness of breath, patient is a nonsmoker symptoms started about 2 weeks ago, however denies any chest pain, she does have symptoms of ongoing heartburn, patient has been immunized again scored, her past medical history significant for hypothyroidism, hypertension hypertensive cardiovascular disease, and hypothyroidism, history of bowel resection and colostomy due to his tory of colon cancer status post colostomy, and influenza and covert testing has been negative her chest x-ray with left lower lobe infiltrate along with large hiatal hernia some component of chronic pulmonary fibrosis, she underwent computed tomography scan of his chest which was negative for pulmonary embolism distillation esophageal wall thickening is noted, with presence of ground glass and reticular opacities, currently patient is appropriately treated with bronchodilators IV antibiotics with azithromycin and Rocephin Objective - Vital Signs Vital signs: Vital Signs Temp 97.5 F L 06/28/21 08:00 Pulse 97 06/28/21 08:00 Resp 16 06/28/21 08:00 BP 120/80 06/28/21 08:00 Pulse Ox 90 L 06/28/21 08:00 Intake & Output 06/27/21 06/28/21 06/28/21 18:59 06:59 18:59 Intake Total 390 Output Total 250 Balance 390 -250 Weight 89.35 kg Intake: Oral 390 Output: Urine 250 Other: Voiding Method External Catheter Bedside Commode Bedside Commode # Voids 1 1 - Exam - Constitutional General appearance: average body habitus, cooperative, disheveled, mild distress - EENT Eyes: PERRLA ENT: normal oropharynx Ears: bilateral: normal - Neck Neck: normal ROM Carotids: bilateral: upstroke normal - Respiratory Respiratory: bilateral: CTA - Cardiovascular Rhythm: regular Heart sounds: normal: S1, S2 - Gastrointestinal General gastrointestinal: distended, hyperactive bowel sounds, soft - Integumentary Integumentary: normal turgor - Neurologic Neurologic: CNII-XII intact - Musculoskeletal Musculoskeletal: gait normal, generalized weakness, strength equal bilaterally - Psychiatric Psychiatric: A&O x's 3 - Labs CBC & Chem 7: 06/26/21 05:14 06/28/21 04:39 Labs: Abnormal Lab Results - Last 24 Hours (Table) 06/28/21 Range/Units 04:39 Sodium 128 L (137-145) mmol/L Chloride 89 L (98-107) mmol/L BUN 27 H (7-17) mg/dL Glucose 175 H (74-99) mg/dL Assessment and Plan Assessment: Left lower lobe pneumonia community-acquired patient appropriately treated with Rocephin and Zithromax can be switched to oral Acute exacerbation of Heart failure with preserved ejection fraction, with high BNP, continue gentle diuresis Component of interstitial pneumonia as well Ongoing continuous cough likely related to pneumonia, diastolic heart failure, as well as component of GERD continue treatment with Protonix Large hiatal hernia with evidence of distal esophageal thickening Elevated d-dimer likely due to inflammatory process Mild Hyponatremia Plan: Continue broad-spectrum antibiotic can be changed to oral and time of discharge Continue Protonix, can be changed over that time of discharge, Continue diuresis Solu-Medrol 40 mg IV every 12, can be changed to oral Medrol Dosepak the time of discharge Cough drops and cough suppressant like Tesluison Salo Chest x-ray reviewed We'll follow clinical course Time with Patient: Greater than 30
--- NOTE | 2021-06-28 10:04 | P.PN ---
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 We are re-consulted for new onset atrial fibrillation. Patient presented to the hospital in 06/20/2021 with symptoms of progressive dyspnea, cough with productive clear sputum. At that time she had some heartburn. Her troponins were negative x 4, no EKG evidence of ischemia. She denies any chest pain. She does continue to have shortness of breath, symptoms of orthopnea, dyspnea on exertion. She is currently being treated for pneumonia. EKG on admission revealed left bundle branch block and left axis deviation, no prior EKG to compare. 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 Patient denies any history of atrial fibrillation, DE, stroke, coronary artery disease or diabetes. She is a non-smoker, denies alcohol use. She states she occasionally does feel palpitations. She denies frequent falls, history of GI ulcers or bleeding. EKG on 06/23/21 and 06/24/21 revealed atrial fibrillation HR 93-106, left bundle branch block, left axis deviation. Echocardiogram 06/21/2021 revealed EF 5560% moderate concentric left ventricular hypertrophy is mitral regurgitation. 06/28/21 Patient seen and examined at bedside, she continues to have some shortness of breath but has some improvement. Telemetry reviewed patient continues to be in atrial fibrillation with better controlled rates 95-low 100s. Laboratory data reviewed, sodium 128, potassium 3.8, BUN 27, serum creatinine 0.8, magnesium 1.8. Patient currently maintained on IV Lasix 40mg BID, Eliquis 5 mg twice a day, losartan 50 mg daily, metoprolol tartrate 50 mg twice a day. She continues to be on Rocephin and Zithromax for pneumonia treatment. Patient is voiding w ell. Her renal function is stable. PHYSICAL EXAMINATION Blood pressure 120/80, heart rate 97, afebrile, maintaining saturations on 5 L nasal cannula. CONSTITUTIONAL: No apparent distress. HEENT: Neck Supple. No JVD. No carotid bruit. CHEST EXAMINATION: Lungs are diminished bases bilaterally to auscultation. No chest wall tenderness is noted on palpation or with deep breathing. HEART EXAMINATION: Irregular rate and rhythm. S1, S2 heard. Systolic murmur at base ABDOMEN: Soft, nontender. Positive bowel sounds. EXTREMITIES: 2+ peripheral pulses, no lower extremity edema and no calf tenderness. NEUROLOGIC EXAMINATION: Patient is awake, alert and oriented x3. ASSESSMENT Chest pain, atypical, acute coronary syndrome has been ruled out New Onset paroxysmal atrial fibrillation -[id number] score 3 Acute diastolic heart failure exacerbation NYHA class IV Hyponatremia Shortness of breath, dyspnea on exertion Left bundle branch block History of hypertension Hypothyroidism PLAN -Continue amiodarone 400mg BID (for one week) and taper per instructions in discharge -[facility] PO Lasix 40mg daily -Discussed atrial fibrillation, risk of stroke with the patient and the benefits an risk of anticoagulation. Patient is agreement in taking anticoagulation -Continue Eliquis 5mg BID, per case management this is covered by the patient's insurance and is $45/month -Continue Losartan -From a cardiology perspective, patient is stable to be discharged. Follow up with Dr. Magdaleno per patient's request in the office within 1 week. Nurse Practitioner note has been reviewed, I agree with a documented findings and plan of care. Patient was seen and examined. Objective - Vital Signs Vital signs: Vital Signs Temp 97.9 F 06/28/21 02:58 Pulse 89 06/28/21 02:58 Resp 20 06/28/21 02:58 BP 143/71 06/28/21 02:58 Pulse Ox 94 L 06/28/21 02:58 Intake & Output 06/27/21 06/28/21 06/28/21 18:59 06:59 18:59 Intake Total 390 Output Total 250 Balance 390 -250 Weight 89.35 kg Intake: Oral 390 Output: Urine 250 Other: Voiding Method External Catheter Bedside Commode # Voids 1 - Labs CBC & Chem 7: 06/26/21 05:14 06/28/21 04:39 Labs: Abnormal Lab Results - Last 24 Hours (Table) 06/28/21 Range/Units 04:39 Sodium 128 L (137-145) mmol/L Chloride 89 L (98-107) mmol/L BUN 27 H (7-17) mg/dL Glucose 175 H (74-99) mg/dL
[2021-06-29] MEDS ORDERED: FUROSEMIDE 40 MG TAB PO SCH (09:00)
== END 2021-06-28 12:00 | DRG 193 ==
LOC: EC 12:46 → 6NMEDSUR 18:57 → OBSVTOIN 06-22 15:16
PROVIDERS: ADMIT Family Medicine; ATTEND Family Medicine
DX: J18.9 Pneumonia, unspecified organism (principal); I50.33 Acute on chronic diastolic (congestive) heart failure; J96.01 Acute respiratory failure with hypoxia; E87.1 Hypo-osmolality and hyponatremia; J44.0 Chronic obstructive pulmonary disease with (acute) lower respiratory infection; N39.0 Urinary tract infection, site not specified; I10 Essential (primary) hypertension; E03.9 Hypothyroidism, unspecified; E66.9 Obesity, unspecified; F41.9 Anxiety disorder, unspecified; Z20.822 Contact with and (suspected) exposure to COVID-19; I44.7 Left bundle-branch block, unspecified; K44.9 Diaphragmatic hernia without obstruction or gangrene; I11.0 Hypertensive heart disease with heart failure; I34.0 Nonrheumatic mitral (valve) insufficiency; I48.91 Unspecified atrial fibrillation; J84.10 Pulmonary fibrosis, unspecified; K21.9 Gastro-esophageal reflux disease without esophagitis; K75.9 Inflammatory liver disease, unspecified; Z85.038 Personal history of other malignant neoplasm of large intestine; Z90.49 Acquired absence of other specified parts of digestive tract; Z79.899 Other long term (current) drug therapy; Z79.890 Hormone replacement therapy; Z68.37 Body mass index [BMI] 37.0-37.9, adult; Z79.01 Long term (current) use of anticoagulants; Z85.048 Personal history of other malignant neoplasm of rectum, rectosigmoid junction, and anus; Z93.3 Colostomy status
CPT/HCPCS: 36415; 71045; 71046; 71275; 80048; 80053; 81001; 82550; 82728; 83605; 83735; 83880; 84439; 84443; 84484; 85025; 85379; 85610; 85652; 85730; 86140; 86738; 87449; 87502; 87634; 87635; 87798; 93005; 93306; 94640; 94760; 96365; 96366; 96375; 99285

== ENCOUNTER 2021-07-10 11:32 | Inpatient (IN) | payer MEDICARE, BC ==
[2021-07-10] MEDS ORDERED: SODIUM CHLORIDE 0.9% 500 ML 500 ML IV STA (12:33)
[2021-07-10] MEDS ORDERED: IPRATROPIUM-ALBUTEROL 3 ML NEB INHALATION STA ×2 (12:33→16:18)
[2021-07-10] MEDS ORDERED: cefTRIAXone IN SWFI 1,000 MG/10 ML SYRINGE IVP STA (12:34)
--- NOTE | 2021-07-10 12:40 | ED ---
General Adult HPI - General Chief complaint: Shortness of Breath Stated complaint: SOB Time Seen by Provider: 07/10/21 12:00 Source: patient, EMS, RN notes reviewed, old records reviewed Mode of arrival: EMS Limitations: physical limitation - History of Present Illness Initial comments: This is an 86-year-old female presents emergency Department from a long term. Patient is brought in because she's had difficulty breathing she's been rattling pneumonia for approximately a month. Patient has been on antibiotics but the symptoms continue to worsen she is now on oxygen which she was never on before. Patient complains of a cough and difficulty breathing. Patient states while she is lying here and that she does feel little bit better on oxygen. No caregiver or family members with the patient and there is no history given to us about a fever. Patient denies any chest pain or palpitations. Patient denies any abdominal pain patient denies nausea vomiting diarrhea. - Related Data Home Medications Medication Instructions Recorded Confirmed Multivitamins, Thera [Multivitamin 1 tab PO DAILY 06/20/21 06/20/21 (formulary)] Previous Rx's Medication Instructions Recorded Apixaban [Eliquis] 5 mg PO BID 30 Days #60 tab 06/24/21 Levothyroxine Sodium 150 mcg PO DAILY #30 tablet 06/25/21 Amiodarone [Cordarone] See Taper PO BID #120 tab 06/28/21 Amoxic-Pot Clav 875-125Mg 1 tab PO Q12HR 3 Days #6 tab 06/28/21 [Augmentin 875-125] Benzonatate [Tessalon Perles] 100 mg PO TID PRN #30 cap 06/28/21 Furosemide [Lasix] 40 mg PO DAILY #30 tab 06/28/21 Losartan [Cozaar] 50 mg PO DAILY #30 tab 06/28/21 Metoprolol Tartrate [Lopressor] 50 mg PO BID 30 Days #60 tab 06/28/21 Allergies Allergy/AdvReac Type Severity Reaction Status Date / Time No Known Allergies Allergy Verified 06/20/21 14:44 Review of Systems ROS Statement: Those systems with pertinent positive or pertinent negative responses have been documented in the HPI. ROS Other: All systems not noted in ROS Statement are negative. Past Medical History Past Medical History: Hypertension, Thyroid Disorder Additional Past Medical History / Comment(s): colon/rectal cancer History of Any Multi-Drug Resistant Organisms: None Reported Past Surgical History: Bowel Resection, Orthopedic Surgery Additional Past Surgical History / Comment(s): Bowel resection with colostomy Past Psychological History: Anxiety Smoking Status: Never smoker Past Alcohol Use History: None Reported Past Drug Use History: None Reported General Exam - General Exam Comments Initial Comments: GENERAL: Patient is well-developed and well-nourished. Patient is nontoxic and well- hydrated and is in mild distress. ENT: Neck is soft and supple. No significant lymphadenopathy is noted. Oropharynx is clear. Moist mucous membranes. Neck has full range of motion without eliciting any pain. EYES: The sclera were anicteric and conjunctiva were pink and moist. Extraocular movements were intact and pupils were equal round and reactive to light. Eyelids were unremarkable. PULMONARY: Unlabored respirations. Good breath sounds bilaterally. Patient has crackles bilateral bases with the left being potentially worsen the right. CARDIOVASCULAR: There is a regular rate and rhythm without any murmurs gallops or rubs. ABDOMEN: Soft and nontender with normal bowel sounds. SKIN: Skin is clear with no lesions or rashes and otherwise unremarkable. NEUROLOGIC: Patient is alert and oriented x3. Cranial nerves II through XII are grossly intact. Motor and sensory are also intact. Normal speech, volume and content. Symmetrical smile. MUSCULOSKELETAL: Normal extremities with adequate strength and full range of motion. LYMPHATICS: No significant lymphadenopathy is noted PSYCHIATRIC: Normal psychiatric evaluation. Limitations: physical limitation Course Vital Signs 07/10/21 07/10/21 07/10/21 11:34 12:49 12:57 Temperature 98.1 F Pulse Rate 89 87 86 Respiratory 28 H 20 20 Rate Blood Pressure 112/57 O2 Sat by Pulse 86 L Oximetry 07/10/21 14:17 Temperature Pulse Rate Respiratory Rate Blood Pressure O2 Sat by Pulse 94 L Oximetry Medical Decision Making - Medical Decision Making EKG shows normal sinus rhythm at 94 bpm OR interval 186 dresses on a 54 Q-T intervals 410 QTC is 512. EKG shows left bundle branch block. Chest x-ray shows bilateral multilobe pneumonia appears that the patient admitted and Zosyn this occurred at 2 PM. I spoke with Dr. Dr. Clinton he agreed to admit the patient admitted the patient wrote admitting orders I consult pulmonary. - Lab Data Result diagrams: 07/10/21 12:43 10/13/21 12:43 Lab Results 07/10/21 07/10/21 07/10/21 Range/Units 12:43 12:43 12:43 WBC 27.1 H (3.8-10.6) k/uL RBC 4.42 (3.80-5.40) m/uL Hgb 12.4 D (11.4-16.0) gm/dL Hct 37.2 (34.0-46.0) % MCV 84.2 (80.0-100.0) fL MCH 28.0 (25.0-35.0) pg MCHC 33.2 (31.0-37.0) g/dL RDW 13.4 (11.5-15.5) % Plt Count 639 H (150-450) k/uL MPV 7.6 Neutrophils % 88 % Lymphocytes % 3 % Monocytes % 8 % Eosinophils % 0 % Basophils % 0 % Neutrophils # 23.9 H (1.3-7.7) k/uL Lymphocytes # 0.7 L (1.0-4.8) k/uL Monocytes # 2.2 H (0-1.0) k/uL Eosinophils # 0.0 (0-0.7) k/uL Basophils # 0.0 (0-0.2) k/uL Manual Slide Review Performed RBC Morphology Normal PT 12.2 H (9.0-12.0) sec INR 1.2 H (<1.2) APTT 28.7 (22.0-30.0) sec Sodium 124 L (137-145) mmol/L Potassium 4.4 (3.5-5.1) mmol/L Chloride 87 L (98-107) mmol/L Carbon Dioxide 26 (22-30) mmol/L Anion Gap 11 mmol/L BUN 30 H (7-17) mg/dL Creatinine 0.92 (0.52-1.04) mg/dL Est GFR (CKD-EPI)AfAm 66 (>60 ml/min/1.73 sqM) Est GFR (CKD-EPI)NonAf 58 (>60 ml/min/1.73 sqM) Glucose 159 H (74-99) mg/dL Plasma Lactic Acid Sundar (0.7-2.0) mmol/L Calcium 9.6 (8.4-10.2) mg/dL Magnesium 2.4 H (1.6-2.3) mg/dL Total Bilirubin 0.7 (0.2-1.3) mg/dL AST 50 H (14-36) U/L ALT 42 H (4-34) U/L Alkaline Phosphatase 100 (38-126) U/L Troponin I (0.000-0.034) ng/mL NT-Pro-B Natriuret Pep pg/mL Total Protein 6.4 (6.3-8.2) g/dL Albumin 2.9 L (3.5-5.0) g/dL Coronavirus (PCR) (Not Detectd) 07/10/21 07/10/21 07/10/21 Range/Units 12:43 12:43 12:43 WBC (3.8-10.6) k/uL RBC (3.80-5.40) m/uL Hgb (11.4-16.0) gm/dL Hct (34.0-46.0) % MCV (80.0-100.0) fL MCH (25.0-35.0) pg MCHC (31.0-37.0) g/dL RDW (11.5-15.5) % Plt Count (150-450) k/uL MPV Neutrophils % % Lymphocytes % % Monocytes % % Eosinophils % % Basophils % % Neutrophils # (1.3-7.7) k/uL Lymphocytes # (1.0-4.8) k/uL Monocytes # (0-1.0) k/uL Eosinophils # (0-0.7) k/uL Basophils # (0-0.2) k/uL Manual Slide Review RBC Morphology PT (9.0-12.0) sec INR (<1.2) APTT (22.0-30.0) sec Sodium (137-145) mmol/L Potassium (3.5-5.1) mmol/L Chloride (98-107) mmol/L Carbon Dioxide (22-30) mmol/L Anion Gap mmol/L BUN (7-17) mg/dL Creatinine (0.52-1.04) mg/dL Est GFR (CKD-EPI)AfAm (>60 ml/min/1.73 sqM) Est GFR (CKD-EPI)NonAf (>60 ml/min/1.73 sqM) Glucose (74-99) mg/dL Plasma Lactic Acid Sundar 2.0 (0.7-2.0) mmol/L Calcium (8.4-10.2) mg/dL Magnesium (1.6-2.3) mg/dL Total Bilirubin (0.2-1.3) mg/dL AST (14-36) U/L ALT (4-34) U/L Alkaline Phosphatase (38-126) U/L Troponin I <0.012 (0.000-0.034) ng/mL NT-Pro-B Natriuret Pep 1310 pg/mL Total Protein (6.3-8.2) g/dL Albumin (3.5-5.0) g/dL Coronavirus (PCR) (Not Detectd) 07/10/21 Range/Units 12:43 WBC (3.8-10.6) k/uL RBC (3.80-5.40) m/uL Hgb (11.4-16.0) gm/dL Hct (34.0-46.0) % MCV (80.0-100.0) fL MCH (25.0-35.0) pg MCHC (31.0-37.0) g/dL RDW (11.5-15.5) % Plt Count (150-450) k/uL MPV Neutrophils % % Lymphocytes % % Monocytes % % Eosinophils % % Basophils % % Neutrophils # (1.3-7.7) k/uL Lymphocytes # (1.0-4.8) k/uL Monocytes # (0-1.0) k/uL Eosinophils # (0-0.7) k/uL Basophils # (0-0.2) k/uL Manual Slide Review RBC Morphology PT (9.0-12.0) sec INR (<1.2) APTT (22.0-30.0) sec Sodium (137-145) mmol/L Potassium (3.5-5.1) mmol/L Chloride (98-107) mmol/L Carbon Dioxide (22-30) mmol/L Anion Gap mmol/L BUN (7-17) mg/dL Creatinine (0.52-1.04) mg/dL Est GFR (CKD-EPI)AfAm (>60 ml/min/1.73 sqM) Est GFR (CKD-EPI)NonAf (>60 ml/min/1.73 sqM) Glucose (74-99) mg/dL Plasma Lactic Acid Sundar (0.7-2.0) mmol/L Calcium (8.4-10.2) mg/dL Magnesium (1.6-2.3) mg/dL Total Bilirubin (0.2-1.3) mg/dL AST (14-36) U/L ALT (4-34) U/L Alkaline Phosphatase (38-126) U/L Troponin I (0.000-0.034) ng/mL NT-Pro-B Natriuret Pep pg/mL Total Protein (6.3-8.2) g/dL Albumin (3.5-5.0) g/dL Coronavirus (PCR) Not Detected (Not Detectd) Disposition Clinical Impression: Pneumonia Disposition: ADMITTED IP TO THIS HOSP Referrals: Debbie Jackson DO [Primary Care Provider] - 1-2 days Time of Disposition: 15:30
[2021-07-10 13:11] LABS: Basophils % (A) 0 %; Eosinophils % (A) 0 %; HCT 37.2 % (34.0-46.0); INR 1.2 (<1.2); Lymphocytes # (A) 0.7 k/uL (1.0-4.8); Lymphocytes % (A) 3 %; MCHC 33.2 g/dL (31.0-37.0); MCV 84.2 fL (80.0-100.0); Mean Platelet Volume 7.6; Monocytes # (A) 2.2 k/uL (0-1.0); Monocytes % (A) 8 %; Neutrophils # (A) 23.9 k/uL (1.3-7.7); Neutrophils % (A) 88 %; Partial Thromboplastin Time 28.7 sec (22.0-30.0); Platelet Count 639 k/uL (150-450); Prothrombin Time 12.2 sec (9.0-12.0); RBC 4.42 m/uL (3.80-5.40); RDW 13.4 % (11.5-15.5); WBC 27.1 k/uL (3.8-10.6)
[2021-07-10 13:14] LABS: Albumin 2.9 g/dL (3.5-5.0); Calcium 9.6 mg/dL (8.4-10.2); Magnesium 2.4 mg/dL (1.6-2.3); Potassium 4.4 mmol/L (3.5-5.1); Total Bilirubin 0.7 mg/dL (0.2-1.3); Total Protein 6.4 g/dL (6.3-8.2)
[2021-07-10 13:29] LABS: HGB 12.4 gm/dL (11.4-16.0)
--- NOTE | 2021-07-10 13:50 | XR ---
EXAMINATION TYPE: XR chest 2V DATE OF EXAM: 07/10/2021 COMPARISON: 06/26/2021 TECHNIQUE: PA and lateral views submitted. HISTORY: Shortness of breath. FINDINGS: Diffuse bilateral infiltrates persist and are similar to prior exam. Suspect a left-sided hiatal juan ia or diaphragmatic hernia. Stable. Diffuse osteopenia and arthropathy of the shoulders. Hypertrophic and degenerative changes spine. Heart size stable. No pneumothorax. Tiny bilateral pleural effusions . Arthropathy of the shoulder. IMPRESSION: Diffuse bilateral airspace disease similar to the prior exam correlate for ARDS, diffuse pneumonia or pulmonary edema.
[2021-07-10] MEDS ORDERED: PIPERACILLIN-TAZOBACTAM 3.375 GM in SODIUM CHLORIDE 0.9% 100 ML IVPB STA (14:09)
[2021-07-10] MEDS ORDERED: SODIUM CHLORIDE 0.9% 1,000 ML IV ONE (14:34)
[2021-07-10] MEDS ORDERED: VANCOMYCIN IV PER PHARMACY 1 EACH MISC MISCELLANE PRN (15:30)
[2021-07-10] MEDS ORDERED: AZITHROMYCIN 500 MG in SODIUM CHLORIDE 0.9% 250 ML IVPB STA (16:16)
[2021-07-10] MEDS ORDERED: PNEUMONIA PROTOCOL UTILIZED 1 EACH MISC PO PRN (16:16)
[2021-07-10] MEDS ORDERED: VANCOMYCIN 1,750 MG in SODIUM CHLORIDE 0.9% 500 ML 500 ML IVPB ONE (16:30)
[2021-07-10] MEDS ORDERED: ACETAMINOPHEN TAB 500 MG TAB PO STA (17:47)
[2021-07-10] MEDS ORDERED: AZITHROMYCIN 500 MG in SODIUM CHLORIDE 0.9% 250 ML IVPB ONE (22:00)
[2021-07-10] MEDS: SODIUM CHLORIDE 0.9% 1,000 ML IV SCH (22:08)
[2021-07-10] MEDS ORDERED: BENZONATATE 100 MG CAP PO PRN (22:09)
[2021-07-10] MEDS: APIXABAN 5 MG TAB PO SCH (22:18)
[2021-07-10] MEDS: METOPROLOL TARTRATE 50 MG TAB PO SCH (22:19)
[2021-07-10] MEDS: PIPERACILLIN-TAZOBACTAM 3.375 GM in SODIUM CHLORIDE 0.9% 100 ML IVPB SCH (23:26)
[2021-07-11] MEDS: SODIUM CHLORIDE 0.9% 1,000 ML IV SCH ×2 (00:12→09:05)
[2021-07-11] MEDS ORDERED: LEVOTHYROXINE 75 MCG TAB PO SCH (06:00)
[2021-07-11] MEDS: ALBUTEROL NEBULIZED 2.5 MG/3 ML INHALATION PRN ×2 (07:00→10:40)
[2021-07-11] MEDS ORDERED: FUROSEMIDE 10 MG/ML 4 ML VIAL IV STA (07:01)
[2021-07-11] MEDS ORDERED: FUROSEMIDE 40 MG TAB PO SCH (08:00)
[2021-07-11] MEDS ORDERED: POTASSIUM CHLORIDE ER 10 MEQ TAB.ER.PRT PO SCH (08:00)
[2021-07-11] MEDS ORDERED: LOSARTAN 50 MG TAB PO SCH (08:00)
--- NOTE | 2021-07-11 08:20 | XR ---
EXAMINATION TYPE: XR chest 2V DATE OF EXAM: 07/11/2021 COMPARISON: Chest x-ray 07/10/2021, CT 06/20/2021 HISTORY: Pneumonia TECHNIQUE: Frontal and lateral views of the chest are obtained. FINDINGS: Bilateral airspace disease persists. Patient is rotated. There is no evident pneumothorax or pleural effusion. Cardiac mediastinal silhouette is stable, enlarged. IMPRESSION: Stable, findings consistent with patient's history of pneumonia, there is underlying int erstitial lung disease, congestive heart failure within the differential
[2021-07-11] MEDS ORDERED: bisacodyL 10 MG SUPP RECTAL PRN (09:00)
[2021-07-11] MEDS: APIXABAN 5 MG TAB PO SCH ×2 (09:00→22:40)
[2021-07-11] MEDS ORDERED: AMIODARONE 200 MG TAB PO SCH (09:00)
[2021-07-11] MEDS ORDERED: valACYclovir 500 MG TAB PO SCH (09:00)
[2021-07-11] MEDS: PIPERACILLIN-TAZOBACTAM 3.375 GM in SODIUM CHLORIDE 0.9% 100 ML IVPB SCH ×3 (10:04→23:41)
[2021-07-11] MEDS: METOPROLOL TARTRATE 50 MG TAB PO SCH ×2 (10:11→22:40)
[2021-07-11] MEDS ORDERED: VANCOMYCIN 1,500 MG in SODIUM CHLORIDE 0.9% 250 ML IVPB SCH (12:00)
[2021-07-11] MEDS ORDERED: LORazepam 2 MG/ML INJ IV PRN (12:13)
[2021-07-11] MEDS ORDERED: AZITHROMYCIN 500 MG in SODIUM CHLORIDE 0.9% 250 ML IVPB SCH (16:00)
[2021-07-11] MEDS ORDERED: MORPHINE SULFATE 2 MG/ML SYRINGE IVP STA (23:26)
[2021-07-12] MEDS: SODIUM CHLORIDE 0.9% 1,000 ML IV SCH ×2 (00:54→02:26)
[2021-07-12 02:13] VITALS: TEMP 99.8
[2021-07-12] MEDS ORDERED: MORPHINE SULFATE 4 MG/ML SYRINGE IVP STA (02:42)
[2021-07-12] MEDS ORDERED: MORPHINE SULFATE 2 MG/ML SYRINGE IVP STA (02:42)
[2021-07-12] MEDS ORDERED: MORPHINE ORAL SOLN 10 MG/5 ML CUP PO PRN (02:44)
[2021-07-12] MEDS ORDERED: MORPHINE SULFATE 4 MG/ML SYRINGE IVP PRN (04:47)
[2021-07-12 04:57] VITALS: BP 95/62; PULSE 65
[2021-07-12 06:34] VITALS: RESP 24
--- NOTE | 2021-07-12 22:27 | P.HPIM ---
History of Present Illness H&P Date: 07/11/21 Chief Complaint: Shortness of breath Wendy Desai is an 86 yo F with PMH of COPD, recent admission with community acquired pneumonia and newly diagnosed atrial fibrillation, who presented to the ED with worsening shortness of breath. History obtained via chart review and wi th daughter at bedside. Pt had initially done well since her discharge. A few days ago she developed significantly worsened shortness of breath with increased oxygen requirement. EMS was then called. On presentation she was tachypneic and hypoxic to 86% on 6 LPM O2. WBC 27k, procalcitonin positive, CXR with bilateral infiltrates. Pt curently on 15 LPM O2 with SpO2 90% and she is complaining of dyspnea. Review of Systems All systems: negative Constitutional: Reports malaise, Reports weakness, Denies chills, Denies fever Eyes: denies blurred vision, denies pain Ears, nose, mouth and throat: Denies headache, Denies sore throat Cardiovascular: Denies chest pain, Denies shortness of breath Respiratory: Reports dyspnea, Reports home oxygen, Denies cough Gastrointestinal: Denies abdominal pain, Denies diarrhea, Denies nausea, Denies vomiting Genitourinary: Denies dysuria, Denies hematuria Musculoskeletal: Denies myalgias Integumentary: Denies pruritus, Denies rash Neurological: Denies numbness, Denies weakness Psychiatric: Denies anxiety, Denies depression Endocrine: Denies fatigue, Denies weight change Past Medical History Past Medical History: Atrial Fibrillation, Hypertension, Thyroid Disorder Additional Past Medical History / Comment(s): colon/rectal cancer History of Any Multi-Drug Resistant Organisms: None Reported Past Surgical History: Bowel Resection, Orthopedic Surgery Additional Past Surgical History / Comment(s): Bowel resection with colostomy Past Psychological History: Anxiety Smoking Status: Never smoker Past Alcohol Use History: None Reported Past Drug Use History: None Reported Medications and Allergies Home Medications Medication Instructions Recorded Confirmed Type Multivitamins, Thera [Multivitamin 1 tab PO DAILY@1700 06/20/21 07/10/21 History (formulary)] Benzonatate [Tessalon Perles] 100 mg PO TID PRN #30 cap 06/28/21 07/10/21 Rx Amiodarone [Cordarone] See Taper PO DIRECTED 07/10/21 07/10/21 History Apixaban [Eliquis] 5 mg PO BID@0800,1700 07/10/21 07/10/21 History Ciclopirox Olamine [Loprox 0.77% 1 applic TOPICAL BID@0800,2100 07/10/21 07/10/21 History cream] Dexamethasone [Decadron] 4 mg PO DAILY@0800 07/10/21 07/10/21 History Docosanol 10% Cream [Abreva] 1 applic TOPICAL BID@0800,2100 07/10/21 07/10/21 History Doxycycline Hyclate 100 mg PO BID@0800,1700 07/10/21 07/10/21 History Furosemide [Lasix] 40 mg PO DAILY@0800 07/10/21 07/10/21 History Ipratropium-Albuterol Nebulize 3 ml INHALATION RT-QID PRN 07/10/21 07/10/21 History [Duoneb 0.5 mg-3 mg/3 ml Soln] Lactose-Reduced Food [Ensure Plus] 1 can PO TID@0900,1300,1800 PRN 07/10/21 07/10/21 History Levothyroxine Sodium 150 mcg PO DAILY@0600 07/10/21 07/10/21 History Losartan [Cozaar] 50 mg PO DAILY@0800 07/10/21 07/10/21 History Magnesium Hydroxide [Milk of 7,200 mg PO DAILY PRN 07/10/21 07/10/21 History Magnesia Concentrate] Metoprolol Tartrate [Lopressor] 50 mg PO BID@0800,1700 07/10/21 07/10/21 History Na Phos,M-B/Na Phos,Di-Ba [Fleet 133 ml RECTAL DAILY PRN 07/10/21 07/10/21 History Adult] Nystatin 100,000 Unit/ml Susp 5 ml PO QID 07/10/21 07/10/21 History [Mycostatin Oral Susp] Nystatin 100,000Unit/gm Cream 1 applic TOPICAL BID 07/10/21 07/10/21 History [Mycostatin Cream] Potassium Chloride ER [K-Dur 10] 10 meq PO DAILY@0800 07/10/21 07/10/21 History bisacodyL [Dulcolax] 10 mg RECTAL DAILY PRN 07/10/21 07/10/21 History valACYclovir HCL [Valtrex] 500 mg PO TID@0600,1400,2200 07/10/21 07/10/21 History Allergies Allergy/AdvReac Type Severity Reaction Status Date / Time No Known Allergies Allergy Verified 07/10/21 16:11 Physical Exam Vitals: Vital Signs Temp Pulse Resp BP BP Pulse Ox 07/12/21 06:34 24 07/12/21 04:56 65 20 95/62 99 07/12/21 02:00 42 H 07/12/21 01:00 46 H 86 L 07/12/21 00:10 38 H 88 L 07/12/21 00:05 48 H 86 L 07/12/21 00:00 99.8 F H 93 51 H 126/45 88 L Intake and Output 07/12/21 07/12/21 07/12/21 06:59 14:59 22:59 Output Total 600 Balance -600 Output: Urine 600 Other: Voiding Method Incontinent External Catheter General: elderly female in moderate distress HEENT: normocephalic, atraumatic, on nasal cannula Neck: supple, no thyromegaly, no JVD CV: Irregular, no murmur. Pulses 2+ Lungs: Decreased breath sounds, wheezing present Abd: soft, nontender, bowel sounds present Neuro: alert and oriented x3,no focal deficit Skin: warm and dry Results CBC & Chem 7: 07/10/21 12:43 07/10/21 12:43 Labs: Microbiology - Last 24 Hours (Table) 07/10/21 12:51 Blood Culture - Preliminary Blood No Growth after 48 hours 07/10/21 12:59 Blood Culture - Preliminary Blood No Growth after 48 hours Thrombosis Risk Factor Assmnt - Choose All That Apply Each Factor Represents 1 point: Medical pt on bed rest, Obesity (BMI >25) Each Risk Factor Represents 3 Points: Age 75 years or older Thrombosis Risk Factor Assessment Total Risk Factor Score: 5 Thrombosis Risk Factor Assessment Level: High Risk Assessment and Plan Plan: 1. Acute hypoxic respiratory failure secondary to HCAP. Admit, consult to pulmonology. Start zosyn, duonebs 2. Persistent atrial fibrillation. Continue home eliquis, amiodarone, metoprolol 3. Chronic diastolic CHF. Continue home lasix and losartan 4. Hypothyroidism. Continue synthroid at home dose
--- NOTE | 2021-07-12 22:29 | P.DS ---
Providers Date of admission: 07/10/21 16:18 Expected date of discharge: 07/12/21 Attending physician: Jacob Clinton MD Consults: 07/10/21 16:15 Consult Physician Urgent Consulting Provider: Andres Helms Consult Reason/Comments: Pneumonia Do you want consulting provider notified?: Yes 07/11/21 08:08 Consult Physician Stat Consulting Provider: Luis Warner Consult Reason/Comments: pneumonia Do you want consulting provider notified?: Yes Primary care physician: Debbie Jackson [place] Course: Wendy Desai is an 86 yo F with PMH of COPD, recent admission with community a cquired pneumonia and newly diagnosed atrial fibrillation, who presented to the ED with worsening shortness of breath. History obtained via chart review and with daughter at bedside. Pt had initially done well since her discharge. A few days ago she developed significantly worsened shortness of breath with increased oxygen requirement. EMS was then called. On presentation she was tachypneic and hypoxic to 86% on 6 LPM O2. WBC 27k, procalcitonin positive, CXR with bilateral infiltrates. Pt curently on 15 LPM O2 with SpO2 90% and she is complaining of dyspnea. Pt was admitted to medicine and pulmonology was consulted. She was started on zosyn and continue on home cardic medications, duonebs. Pt with increased oxygen requirements requiring BIPAP. She did require ativan to tolerate the BIPAP and decided against using it. Goals of care discussion with family regarding escalation respiratory support and elected to proceed with comfort care. Pt on 07/12/21. Plan - Discharge Summary Discharge Rx Participant: No New Discharge Prescriptions: No Action Benzonatate [Tessalon Perles] 100 mg PO TID PRN #30 cap PRN Reason: Cough Ipratropium-Albuterol Nebulize [Duoneb 0.5 mg-3 mg/3 ml Soln] 3 ml INHALATION RT-QID PRN PRN Reason: Shortness Of Breath bisacodyL [Dulcolax] 10 mg RECTAL DAILY PRN PRN Reason: Constipation Na Phos,M-B/Na Phos,Di-Ba [Fleet Adult] 133 ml RECTAL DAILY PRN PRN Reason: Constipation valACYclovir HCL [Valtrex] 500 mg PO TID@0600,1400,2200 Metoprolol Tartrate [Lopressor] 50 mg PO BID@0800,1700 Doxycycline Hyclate 100 mg PO BID@0800,1700 Ciclopirox Olamine [Loprox 0.77% cream] 1 applic TOPICAL BID@0800,2100 Amiodarone [Cordarone] See Taper PO DIRECTED Docosanol 10% Cream [Abreva] 1 applic TOPICAL BID@0800,2100 Potassium Chloride ER [K-Dur 10] 10 meq PO DAILY@0800 Levothyroxine Sodium 150 mcg PO DAILY@0600 Dexamethasone [Decadron] 4 mg PO DAILY@0800 Magnesium Hydroxide [Milk of Magnesia Concentrate] 7,200 mg PO DAILY PRN PRN Reason: Constipation Multivitamins, Thera [Multivitamin (formulary)] 1 tab PO DAILY@1700 Nystatin 100,000 Unit/ml Susp [Mycostatin Oral Susp] 5 ml PO QID Lactose-Reduced Food [Ensure Plus] 1 can PO TID@0900,1300,1800 PRN PRN Reason: IF LESS THAN 50% OF MEAL EATEN Nystatin 100,000Unit/gm Cream [Mycostatin Cream] 1 applic TOPICAL BID Apixaban [Eliquis] 5 mg PO BID@0800,1700 Losartan [Cozaar] 50 mg PO DAILY@0800 Furosemide [Lasix] 40 mg PO DAILY@0800 Discharge Medication List Multivitamins, Thera [Multivitamin (formulary)] 1 tab PO DAILY@1700 06/20/21 [History] Benzonatate [Tessalon Perles] 100 mg PO TID PRN #30 cap 06/28/21 [Rx] Amiodarone [Cordarone] See Taper PO DIRECTED 07/10/21 [History] Apixaban [Eliquis] 5 mg PO BID@0800,1700 07/10/21 [History] Ciclopirox Olamine [Loprox 0.77% cream] 1 applic TOPICAL BID@0800,2100 07/10/21 [History] Dexamethasone [Decadron] 4 mg PO DAILY@0800 07/10/21 [History] Docosanol 10% Cream [Abreva] 1 applic TOPICAL BID@0800,2100 07/10/21 [History] Doxycycline Hyclate 100 mg PO BID@0800,1700 07/10/21 [History] Furosemide [Lasix] 40 mg PO DAILY@0800 07/10/21 [History] Ipratropium-Albuterol Nebulize [Duoneb 0.5 mg-3 mg/3 ml Soln] 3 ml INHALATION RT-QID PRN 07/10/21 [History] Lactose-Reduced Food [Ensure Plus] 1 can PO TID@0900,1300,1800 PRN 07/10/21 [History] Levothyroxine Sodium 150 mcg PO DAILY@0600 07/10/21 [History] Losartan [Cozaar] 50 mg PO DAILY@0800 07/10/21 [History] Magnesium Hydroxide [Milk of Magnesia Concentrate] 7,200 mg PO DAILY PRN 07/10/21 [History] Metoprolol Tartrate [Lopressor] 50 mg PO BID@0800,1700 07/10/21 [History] Na Phos,M-B/Na Phos,Di-Ba [Fleet Adult] 133 ml RECTAL DAILY PRN 07/10/21 [History] Nystatin 100,000 Unit/ml Susp [Mycostatin Oral Susp] 5 ml PO QID 07/10/21 [History] Nystatin 100,000Unit/gm Cream [Mycostatin Cream] 1 applic TOPICAL BID 07/10/21 [History] Potassium Chloride ER [K-Dur 10] 10 meq PO DAILY@0800 07/10/21 [History] bisacodyL [Dulcolax] 10 mg RECTAL DAILY PRN 07/10/21 [History] valACYclovir HCL [Valtrex] 500 mg PO TID@0600,1400,2200 07/10/21 [History] Follow up Appointment(s)/Referral(s): Debbie Jackson DO [Primary Care Provider] - 1-2 days Discharge Disposition: - Preliminary Cause of Preliminary Cause of : pnuemonia
--- NOTE | 2021-07-13 09:25 | P.CONS ---
History of Present Illness - Reason for Consult Consult date: 07/11/21 pneumonia Requesting physician: Jacob Clinton - Chief Complaint increasing shortness of breath x days - History of Present Illness History of present illness : Patient is 86-year female with a past medical history difficult for COPD recent diagnosis of atrial fibrillation who was recently admitted to the hospital and treated for pneumonia subsequent discharged to the [facility] for rehabilitation patient apparently did have a improvement in her respiratory status however over the last few days per the daughter the patient did have increasing shortness of breath she also have rattling cough for the patient was started on oral antibiotic in the nursing h ome however the patient did have progressive worsening of her symptoms and the patient was sent to the ER for further evaluation on arrival to the ER patient was hypoxic requiring a nonrebreather she was initially afebrile did have a low- grade fever 100 degrees 400 this afternoon patient did have white count of 27,000 with a left shift kidney function has been normal vasquez PCR was negative patient did have a chest x-ray diffuse bilateral airspace disease similar to prior exam correlate for ARDS patient was admitted to hospital she was started on Zosyn infectious disease was consulted for further management of antibiotic therapy most of the information has been obtained from review the chart and talking with the daughter at the bedside as the patient herself was not provide reliable history Review of system: Positive point has been mentioned in HPI complete review could not be obtained because of underlying mental status Past medical history : Reviewed, documented below Past surgical history : Reviewed, documented below Social history: Reviewed, documented below Medications: Reviewed, as documented below EXAMINATION: Vital sigans= Reviewed and documented below GENERAL DESCRIPTION: Elderly female lying in bed, no distress. No tachypnea or accessory muscle of respiration use. HEENT: Shows Pallor , no scleral icterus. Oral mucous membrane is dry. NECK: Trachea central, no thyromegaly. LUNGS: Unlabored breathing. Coarse breath sounds bilaterally. No wheeze or crackle. HEART: S1, S2, regular rate and rhythm. ABDOMEN: Soft, no tenderness , guarding or rigidity EXTREMITIES: No edema of feet. SKIN: No rash, no masses palpable. NEUROLOGICAL: The patient is awake, alert, oriented x3, mood and affect normal. LABS AND RADIOLOGY: Reviewed results see below Assessment : Patient is 86-year-old female senior living resident has been brought to the hospital for worsening shortness of breath cough with evidence of hypoxemia and diffuse pneumonia and significant elevated white count, with concern for possible combination of the fluid overload and a gram-negative pneumonia Plan: 1-obtain sputum for Gram stain and culture 2-check urine for urine antigen 3-Zosyn 3.375 g every 8 hours We will follow on clinical condition and cultures to further adjust medication if needed Thank you for this consultation we will follow the patient along with you Past Medical History Past Medical History: Hypertension, Thyroid Disorder Additional Past Medical History / Comment(s): colon/rectal cancer History of Any Multi-Drug Resistant Organisms: None Reported Past Surgical History: Bowel Resection, Orthopedic Surgery Additional Past Surgical History / Comment(s): Bowel resection with colostomy Past Psychological History: Anxiety Smoking Status: Never smoker Past Alcohol Use History: None Reported Past Drug Use History: None Reported Medications and Allergies Home Medications Medication Instructions Recorded Confirmed Type Multivitamins, Thera [Multivitamin 1 tab PO DAILY@1700 06/20/21 07/10/21 History (formulary)] Benzonatate [Tessalon Perles] 100 mg PO TID PRN #30 cap 06/28/21 07/10/21 Rx Amiodarone [Cordarone] See Taper PO DIRECTED 07/10/21 07/10/21 History Apixaban [Eliquis] 5 mg PO BID@0800,1700 07/10/21 07/10/21 History Ciclopirox Olamine [Loprox 0.77% 1 applic TOPICAL BID@0800,2100 07/10/21 07/10/21 History cream] Dexamethasone [Decadron] 4 mg PO DAILY@0800 07/10/21 07/10/21 History Docosanol 10% Cream [Abreva] 1 applic TOPICAL BID@0800,2100 07/10/21 07/10/21 History Doxycycline Hyclate 100 mg PO BID@0800,1700 07/10/21 07/10/21 History Furosemide [Lasix] 40 mg PO DAILY@0800 07/10/21 07/10/21 History Ipratropium-Albuterol Nebulize 3 ml INHALATION RT-QID PRN 07/10/21 07/10/21 History [Duoneb 0.5 mg-3 mg/3 ml Soln] Lactose-Reduced Food [Ensure Plus] 1 can PO TID@0900,1300,1800 PRN 07/10/21 07/10/21 History Levothyroxine Sodium 150 mcg PO DAILY@0600 07/10/21 07/10/21 History Losartan [Cozaar] 50 mg PO DAILY@0800 07/10/21 07/10/21 History Magnesium Hydroxide [Milk of 7,200 mg PO DAILY PRN 07/10/21 07/10/21 History Magnesia Concentrate] Metoprolol Tartrate [Lopressor] 50 mg PO BID@0800,1700 07/10/21 07/10/21 History Na Phos,M-B/Na Phos,Di-Ba [Fleet 133 ml RECTAL DAILY PRN 07/10/21 07/10/21 His tory Adult] Nystatin 100,000 Unit/ml Susp 5 ml PO QID 07/10/21 07/10/21 History [Mycostatin Oral Susp] Nystatin 100,000Unit/gm Cream 1 applic TOPICAL BID 07/10/21 07/10/21 History [Mycostatin Cream] Potassium Chloride ER [K-Dur 10] 10 meq PO DAILY@0800 07/10/21 07/10/21 History bisacodyL [Dulcolax] 10 mg RECTAL DAILY PRN 07/10/21 07/10/21 History valACYclovir HCL [Valtrex] 500 mg PO TID@0600,1400,2200 07/10/21 07/10/21 History Allergies Allergy/AdvReac Type Severity Reaction Status Date / Time No Known Allergies Allergy Verified 07/10/21 16:11 Physical Exam Vitals: Vital Signs Temp Pulse Pulse Resp BP BP BP 07/11/21 10:17 88 22 111/61 07/11/21 08:54 83 18 131/56 07/11/21 07:10 84 07/11/21 07:00 88 07/11/21 06:21 07/11/21 06:00 07/11/21 05:27 24 131/56 07/11/21 03:15 98.4 F 64 24 132/73 07/11/21 02:00 76 07/10/21 23:00 97.8 F 76 23 115/59 07/10/21 21:00 97.8 F 85 24 113/64 07/10/21 18:00 80 24 134/54 07/10/21 15:59 83 26 H 106/53 10/13/21 14:17 07/10/21 12:57 86 20 07/10/21 12:49 87 20 07/10/21 11:34 98.1 F 89 28 H 112/57 Pulse Ox 07/11/21 10:17 95 07/11/21 08:54 95 07/11/21 07:10 07/11/21 07:00 07/11/21 06:21 95 07/11/21 06:00 87 L 07/11/21 05:27 92 L 07/11/21 03:15 95 07/11/21 02:00 07/10/21 23:00 97 07/10/21 21:00 94 L 07/10/21 18:00 95 07/10/21 15:59 93 L 07/10/21 14:17 94 L 07/10/21 12:57 07/10/21 12:49 07/10/21 11:34 86 L Intake and Output 07/10/21 07/11/21 07/11/21 22:59 06:59 14:59 Output Total 700 Balance -700 Output: Urine 700 Other: Voiding Method Incontinent Incontinent External Catheter External Catheter Weight 85.729 kg Results CBC & Chem 7: 07/10/21 12:43 07/10/21 12:43 Labs: Abnormal Lab Results - Last 24 Hours (Table) 07/10/21 07/10/21 07/10/21 Range/Units 12:43 12:43 12:43 WBC 27.1 H (3.8-10.6) k/uL Plt Count 639 H (150-450) k/uL Neutrophils # 23.9 H (1.3-7.7) k/uL Lymphocytes # 0.7 L (1.0-4.8) k/uL Monocytes # 2.2 H (0-1.0) k/uL PT 12.2 H (9.0-12.0) sec INR 1.2 H (<1.2) Sodium 124 L (137-145) mmol/L Chloride 87 L (98-107) mmol/L BUN 30 H (7-17) mg/dL Glucose 159 H (74-99) mg/dL Magnesium 2.4 H (1.6-2.3) mg/dL AST 50 H (14-36) U/L ALT 42 H (4-34) U/L Albumin 2.9 L (3.5-5.0) g/dL
--- NOTE | 2021-07-18 12:36 | CDI ---
Documentation Clarification Form Date: 07/18/2021 From: Melanie Delgado RN, CCDS Email: [email or web address] Admit Date: 07/10/2021 04:18:00 PM Patient Name: Wendy Desai Visit Number: [id number] Discharge Date: 07/12/2021 09:09:00 AM ATTENTION: The Clinical Documentation Specialists (CDI) and [facility] Coding Staff appreciate your assistance in clarifying documentation. Please respond to the clarification below the line at the bottom and electronically sign. The CDI & [facility] Coding staff will review the response and follow-up if needed. Please note: Queries are made part of the Legal Health Record. If you have any questions, please contact the author of this message via ITS. Dr. Jacob Clinton The patient presented with cough, difficulty breathing and pneumonia for one month. Based on this information and the findings below, is there an additional diagnosis that is clinically appropriate for this patient? History/Risk factors: PMH of COPD, recent admission with community acquired pneumonia and newly diagnosed atrial fibrillation, who presented to the ED with worsening shortness of breath. A few days ago she developed significantly worsened shortness of breath with increased oxygen requirement. EMS was then called. Clinical Indicators: H&P: On presentation she was tachypneic and hypoxic to 86% on 6 LPM O2.WBC 27k, procalcitonin positive, CXR with bilateral infiltrates. Pt currently on 15 LPM O2 with SpO2 90% and she is complaining of dyspnea. Respiratory: Reports dyspnea, Reports home oxygen. Lungs: Decreased breath sounds, wheezing present. Acute hypoxic respiratory failure secondary to HCAP. Lab findings: 07/10 WBC 27.1, Neutrophils 23.9, lactic acid 2.0, BC with no growth. 07/11 Procalcitonin 0.34 Radiology findings: 07/10 CXR: Diffuse bilateral airspace disease similar to the prior exam correlate for ARDS, diffuse pneumonia or pulmonary edema. 07/11 CXR: Stable, findings consistent with patient's history of pneumonia, there is underlying interstitial lung disease, congestive heart failure within differential Vital Signs: 07/10 admission: T 98.1, HR 89, RR 28, BP 112/57, pox 86%. 07/11 Temp 100. Treatment: Azithromycin 500mg IV on 07/10 and 07/11. Rocephin 1000mg IV x1 on 07/10. Zosyn 3.375gm IV on 07/10 then Q8H. Vancomycin 1750mg IV x1 on 07/10 then 1500mg on 07/11. 0.9 NS 1L IV bolus x2 on 07/10 followed by 130/hr. Consults: 07/11 ID: [email or web address] resident has been brought to the hospital for worsening shortness of breath, cough with evidence of hypoxemia and diffuse pneumonia and significant elevated white count, with concern for possible combination of the fluid overload and a gram- negative pneumonia. Is there an additional diagnosis that is clinically appropriate for this patient? [ ] Sepsis POA [ ] Sepsis not POA [ ] No Sepsis [ ] Other, please specify [ ] Unable to determine Sepsis POA MTDD
--- NOTE | 2021-07-18 12:50 | CDI ---
Documentation Clarification Form Date: 07/18/2021 12:40:03 PM From: Melanie Delgado RN, CCDS Email: [email or web address] Admit Date: 07/10/2021 04:18:00 PM Patient Name: Wendy Desai Visit Number: [id number] Discharge Date: 07/12/2021 09:09:00 AM ATTENTION: The Clinical Documentation Specialists (CDI) and [facility] Coding Staff appreciate your assistance in clarifying documentation. Please respond to the clarification below the line at the bottom and electronically sign. The CDI & [facility] Coding staff will review the response and follow-up if needed. Please note: Queries are made part of the Legal Health Record. If you have any questions, please contact the author of this message via ITS. Dr. Jacob Clinton CAP pneumonia is documented in the H&P and possible gram-negative pneumonia is documented by ID direct response consultant. Additional clarification regarding the type of pneumonia is requested. History/Risk Factors: History/Risk factors: PMH of COPD, recent admission with community acquired pneumonia and newly diagnosed atrial fibrillation, who presented to the ED with worsening shortness of breath. A few days ago she developed significantly worsened shortness of breath with increased oxygen requirement. EMS was then called. Clinical Indicators: "On presentation she was tachypneic and hypoxic to 86% on 6 LPM O2.WBC 27k, procalcitonin positive, CXR with bilateral infiltrates. Pt currently on 15 LPM O2 with SpO2 90% and she is complaining of dyspnea. Respiratory: Reports dyspnea, Reports home oxygen. Lungs: Decreased breath sounds, wheezing present. Acute hypoxic respiratory failure secondary to HCAP." Lab findings: 07/10 WBC 27.1, Neutrophils 23.9, lactic acid 2.0, BC with no growth. 07/11 Procalcitonin 0.34 Radiology findings: 07/10 CXR: Diffuse bilateral airspace disease similar to the prior exam correlate for ARDS, diffuse pneumonia or pulmonary edema. 07/11 CXR: Stable, findings consistent with patient's history of pneumonia, there is underlying interstitial lung disease, congestive heart failure within the differential Vital Signs: 07/10 admission: T 98.1, HR 89, RR 28, BP 112/57, pox 86%. 07/11 Temp 100. Treatment: Azithromycin 500mg IV on 07/10 and 07/11. Rocephin 1000mg IV x1 on 07/10. Zosyn 3.375gm IV on 07/10 then Q8H. Vancomycin 1750mg IV x1 on 07/10 then 1500mg on 07/11. 0.9 NS 1L IV bolus x2 on 07/10 followed by 130/hr. Consults: 07/11 ID: group home resident has been brought to the hospital for worsening shortness of breath cough with evidence of hypoxemia and diffuse pneumonia and significant elevated white count, with concern for possible combination of the fluid overload and a gram- negative pneumonia. O2: 6LNC to NRB mask Breathing treatment: Albuterol Q4H prn Please clarify the type of pneumonia, if known: [ ] Gram Negative Bacterial Pneumonia [ ] Pneumonia unspecified [ ] Other, please specify [ ] Unable to determine Gram Negative Bacterial Pneumonia MTDD
--- NOTE | 2021-07-18 13:07 | CDI ---
Documentation Clarification Form Date: 07/18/2021 12:55:59 PM From: Melanie Delgado RN, CCDS Email: [email or web address] Admit Date: 07/10/2021 04:18:00 PM Patient Name: Wendy Desai Visit Number: [id number] Discharge Date: 07/12/2021 09:09:00 AM ATTENTION: The Clinical Documentation Specialists (CDI) and [facility] Coding Staff appreciate your assistance in clarifying documentation. Please respond to the clarification below the line at the bottom and electronically sign. The CDI & [facility] Coding staff will review the response and follow-up if needed. Please note: Queries are made part of the Legal Health Record. If you have any questions, please contact the author of this message via ITS. Dr. Jacob Clinton Your patient had a CXR result: Diffuse bilateral airspace disease similar to the prior exam correlate for ARDS, diffuse pneumonia or pulmonary edema. Diagnosis of acute hypoxic respiratory failure is documented in the progress notes. Please clarify the most appropriate diagnosis for this patient. History/Risk Factors: History/Risk factors: PMH of COPD, recent admission with community acquired pneumonia and newly diagnosed atrial fibrillation, who presented to the ED with worsening shortness of breath. A few days ago she developed significantly worsened shortness of breath with increased oxygen requirement. EMS was then called. Clinical indicators: On presentation she was tachypneic and hypoxic to 86% on 6 LPM O2.WBC 27k, procalcitonin positive, CXR with bilateral infiltrates. Pt currently on 15 LPM O2 with SpO2 90% and she is complaining of dyspnea. Respiratory: Reports dyspnea, Reports home oxygen. Lungs: Decreased breath sounds, wheezing present. Acute hypoxic respiratory failure secondary to HCAP." 07/10 CXR: Diffuse bilateral airspace disease similar to the prior exam correlate for ARDS, diffuse pneumonia or pulmonary edema. 07/11 CXR: Stable, findings consistent with patient's history of pneumonia, there is underlying interstitial lung disease, congestive heart failure within the differential Treatment: 07/11 ID consult: residential resident has been brought to the hospital for worsening shortness of breath cough with evidence of hypoxemia and diffuse pneumonia and significant elevated white count, with concern for possible combination of the fluid overload and a gram- negative pneumonia. Patient did have a chest x-ray diffuse bilateral airspace disease similar to prior exam correlate for ARDS patient was admitted to hospital she was started on Zosyn infectious disease was consulted for further management of antibiotic therapy." O2: 6LNC to NRB mask to bipap Breathing treatment: Albuterol Q4H prn Please clarify the most appropriate diagnosis: [ ] Acute hypoxic respiratory failure [ ] ARDS [ ] Result is not clinically significant (no additional diagnosis) [ ] Other, please specify [ ] Unable to determine Acute hypoxic respiratory failure MTDD
== END 2021-07-12 09:09 | disposition expired | DRG 871 ==
LOC: EC 11:32 → 3SCARD 16:18
PROVIDERS: ADMIT Family Medicine; ATTEND Family Medicine
PROC: 5A09357 Assistance with Respiratory Ventilation, Less than 24 Consecutive Hours, Continuous Positive Airway Pressure (ICD-10-PCS; principal; 2021-07-11)
DX: A41.50 Gram-negative sepsis, unspecified (principal); J15.6 Pneumonia due to other Gram-negative bacteria; J96.01 Acute respiratory failure with hypoxia; I50.32 Chronic diastolic (congestive) heart failure; J44.0 Chronic obstructive pulmonary disease with (acute) lower respiratory infection; I48.19 Other persistent atrial fibrillation; I11.0 Hypertensive heart disease with heart failure; Z43.3 Encounter for attention to colostomy; Z66 Do not resuscitate; Z51.5 Encounter for palliative care; Z20.822 Contact with and (suspected) exposure to COVID-19; Y95 Nosocomial condition; E03.9 Hypothyroidism, unspecified; I44.7 Left bundle-branch block, unspecified; R32 Unspecified urinary incontinence; F41.9 Anxiety disorder, unspecified; E66.9 Obesity, unspecified; Z68.33 Body mass index [BMI] 33.0-33.9, adult; Z79.01 Long term (current) use of anticoagulants; Z79.890 Hormone replacement therapy; Z79.899 Other long term (current) drug therapy; Z85.048 Personal history of other malignant neoplasm of rectum, rectosigmoid junction, and anus; Z90.49 Acquired absence of other specified parts of digestive tract; Z98.890 Other specified postprocedural states
CPT/HCPCS: 36415; 71046; 80053; 83605; 83735; 83880; 84145; 84484; 85025; 85027; 85610; 85730; 87040; 87635; 93005; 94640; 94660; 96361; 96374; 96375; 99285